=== PATIENT | male | born 1965 | race Caucasian/White ===

== ENCOUNTER → 2021-03-08 | Outpatient (CLI) | payer OTHER, SELFPAY | END | disposition home or self-care (01) | LOC: LABSPEC 08:20 | PROVIDERS: Referring Provider Physician Assistant Surgical; Visit Provider Physician Assistant Surgical | DX: Z20.822 Contact with and (suspected) exposure to COVID-19 (principal) | CPT/HCPCS: 87635; U0005; U0003 ==

== ENCOUNTER 2021-06-15 12:49 | Emergency (ER) | payer OTHER, SELFPAY ==
[2021-06-15 12:50] VITALS: BP 137/72; PULSE 86; RESP 18; TEMP 36.7; O2SAT 97; BMI 32.3
[2021-06-15 12:52] VITALS: BP 137/72; PULSE 86; RESP 18; TEMP 36.7; O2SAT 97
[2021-06-15 13:52] VITALS: BP 134/74; PULSE 82; RESP 18; TEMP 36.7; O2SAT 97
--- NOTE | 2021-06-15 15:09 | EX.ED.DYSGE1 ---
HPI History of Present Illness Chief Complaint: General Illness Informant: patient Onset/Context/Timing Onset: Days (5) Context: Gradual Onset Timing: Continuous Quality: Sharp Location: Generalized Worsened by: Nothing Relieved by: Tylenol and Motrin Narrative Narrative: Patient presents with fever that has been constant for the past 5 days. Patient states it has been up to 103.5 at home. Patient did a home COVID-19 test which was negative. Patient went to an urgent care yesterday where they did influenza A and influenza B swabs along with a a Covid PCR test which was negative. Patient states he has been taking Tylenol and ibuprofen for his fever. Patient states this seems to help. Patient also admits to pain in both ears. Patient admits to generalized body aches as well. Patient states that his aches seem to be migratory. Patient also notes a rash over his chest and abdomen as well as his upper extremities. Patient denies any itching. Patient states it is erythema of his skin. 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 [facility] Medical History ASD (atrial septal defect) Home Medications NK 03/06/21 [History Last Taken Unknown] Allergy/AdvReac Type Severity Reaction Status Date / Time grass pollen Allergy Intermediate u Verified 06/15/21 12:52 tree and shrub pollen Allergy Intermediate u Verified 06/15/21 12:52 Surgical History History of appendectomy Social History Smoking Status: Never smoker alcohol intake: current alcohol intake frequency: a few times a week Alcohol type: wine ROS ROS ED Constitutional Constitutional ED: Reports chills and fever(s) Eyes Eyes: Denies blurry vision or change in vision ENT ENT ED: Reports ear pain bilateral; Denies rhinorrhea or sore throat Cardiovascular Cardiovascular: Denies chest pain or palpitations Respiratory/Chest Respiratory/Chest: Denies cough or dyspnea Gastrointestinal Gastrointestinal: Denies nausea or vomiting Genitourinary Genitourinary ED: Denies dysuria or hematuria Musculoskeletal Musculoskeletal: Reports back pain and myalgias Integumentary Reports rash; Denies abscess Neurologic Neurologic: Reports headache(s) and paresthesias; Denies weakness Allergic/Immunologic Allergic/Immunologic ED: Denies mouth swelling or urticaria EXAM Physical Exam Const Vital Signs: 06/15/21 12:50 06/15/21 12:52 06/15/21 13:52 Temperature 98.0 F 98.0 F 98.0 F Temperature Source Temporal Temporal Temporal Pulse Rate 86 86 82 Respiratory Rate 18 18 18 Respiratory Effort Normal Blood Pressure 137/72 H 137/72 H 134/74 H Blood Pressure Mean 93 93 94 Pulse Ox 97 97 97 Oxygen Delivery Method Room Air Room Air Room Air Positive well nourished and well developed General Appearance ED: well developed HEENT Reports TM's clear and moist mucous membranes Tympanic Membrane ED: Yes TM's clear Neck supple and no JVD Resp normal respiratory effort and clear to auscultation bilaterally Cardio regular rate, regular rhythm and no murmurs GI normal to inspection, nondistended, normoactive bowel sounds and non-tender Palpation: soft Extremity normal to inspection General Extremety ED: Negative for edema or tenderness General Extremity: Negative for edema Neuro oriented x3, CN's II-XII intact bilaterally and no sensory deficits noted Sensorium / Orientation: alert Motor Exam: strength 5/5 throughout Psych mental status grossly normal Skin Skin Narrative: There is an erythematous macular rash that is worse across the chest but also involves the abdomen and bilateral upper extremities. There are no vesicles or pustules. There are no petechia noted. There is no involvement of mucous membranes. MDM MDM MDM Narrative Medical decision making narrative: Patient was given IV fluids and morphine here. CBC shows a mild anemia with hemoglobin of 12.6 hematocrit 36.7. Platelets were normal. Comprehensive metabolic profile was essentially within normal limits. Anion gap was normal. Total bilirubin was slightly elevated at 1.8, AST was slightly elevated at 184, and ALT was slightly elevated at 311. Lactate was normal. Urinalysis does not show any evidence of urinary tract infection. Portable chest x-ray was obtained. There is 1 view. On my interpretation, there is bibasilar atelectasis. There is no acute cardiopulmonary process. Radiologist also interpreted the x-ray and agrees. Patient is feeling better on reevaluation. Patient was advised of his findings. Patient was instructed to follow-up with his primary care physician in 5 to 7 days. Patient does not have any right upper quadrant pain. However, given his mildly elevated liver function tests, he may need further evaluation of this as an outpatient. I do not feel he has acute cholecystitis at this time. Patient understands and is agreeable with the plan. All questions were answered. Lab Data Attestation: I reviewed the patient's lab results. Labs: Laboratory Results - last 24 hr 06/15/21 06/15/21 06/15/21 15:55 15:55 15:55 WBC 6.9 RBC 4.18 L Hgb 12.6 L Hct 36.7 L MCV 87.8 MCH 30.1 MCHC 34.3 RDW Std Deviation 42.1 RDW Coeff of Arnold 13.1 Plt Count 151 MPV 10.0 Immature Gran % (Auto) 0.100 Neut % (Auto) 78.7 H Lymph % (Auto) 15.6 L [place] % (Auto) 4.1 Eos % (Auto) 0.9 Baso % (Auto) 0.6 Absolute Neuts (auto) 5.4 Absolute Lymphs (auto) 1.07 Nucleated RBC % 0 Differential Comment SCANNED Atypical Lymphocytes RARE Sodium 136 Potassium 3.6 Chloride 99 Carbon Dioxide 28.0 Anion Gap 9 BUN 20 H Creatinine 1.25 Estim Creat Clear Calc 68.13 Est GFR (MDRD) Af Amer 77 Est GFR (MDRD) Non-Af 63 BUN/Creatinine Ratio 16.0 Glucose 115 H Lactic Acid 1.9 Calcium 8.6 Total Bilirubin 1.80 H AST 184 H ALT 311 H Alkaline Phosphatase 55 Total Protein 7.3 Albumin 3.3 Globulin 4.0 Albumin/Globulin Ratio 0.8 L Urine Color Urine Clarity Urine pH Ur Specific [place] Urine Protein Urine Glucose (UA) Urine Ketones Urine Occult Blood Urine Nitrite Urine Bilirubin Urine Urobilinogen Ur Leukocyte Esterase Urine RBC Urine WBC Ur Squamous Epith Cells Amorphous Sediment Urine Bacteria Urine Mucus 06/15/21 17:11 WBC RBC Hgb Hct MCV MCH MCHC RDW Std Deviation RDW Coeff of Arnold Plt Count MPV Immature Gran % (Auto) Neut % (Auto) Lymph % (Auto) [place] % (Auto) Eos % (Auto) Baso % (Auto) Absolute Neuts (auto) Absolute Lymphs (auto) Nucleated RBC % Differential Comment Atypical Lymphocytes Sodium Potassium Chloride Carbon Dioxide Anion Gap BUN Creatinine Estim Creat Clear Calc Est GFR (MDRD) Af Amer Est GFR (MDRD) Non-Af BUN/Creatinine Ratio Glucose Lactic Acid Calcium Total Bilirubin AST ALT Alkaline Phosphatase Total Protein Albumin Globulin Albumin/Globulin Ratio Urine Color [place] Urine Clarity Clear Urine pH 5.0 Ur Specific [place] 1.020 Urine Protein 100 H Urine Glucose (UA) Normal Urine Ketones 15 H Urine Occult Blood 25 H Urine Nitrite Negative Urine Bilirubin Negative Urine Urobilinogen Normal Ur Leukocyte Esterase 25 H Urine RBC 0 SEEN Urine WBC 0-5 SEEN Ur Squamous Epith Cells 0 SEEN Amorphous Sediment 1+ Urine Bacteria 1+ Urine Mucus 0 SEEN Radiography Chest X-Ray - ED: 1 View, Read by ED Physician, Read by Radiologist and No Acute Disease Diagnostic Testing: Clinical Impression(s) from Imaging Studies Chest X-Ray 06/15/21 15:16 IMPRESSION: Poor inspiration with bibasilar atelectasis. Electronically Signed: Dewayne Waller MD at 16:30 EST Tel , Service support , Discharge Plan Triage Chief Complaint: General Illness ED Provider: Jose Mcqueen Dx/Rx/DC Orders Clinical Impression: Febrile illness Instructions: ED FUO Adult Prescriptions: No Action NK RF: 0 Primary Care Provider: Guillermo Lambert Referrals: Guillermo Lambert MD [Primary Care Provider] - 5-7 Days Disposition Disposition: Home, Self Care
--- NOTE | 2021-06-15 15:16 | RAD_ITS ---
STUDY: X-RAY CHEST REASON FOR EXAM: Male, 55 years old. Fever TECHNIQUE: PA and lateral views of the chest. COMPARISON: None. FINDINGS: Status post median sternotomy, possibly as a child. Poor inspiration with some bibasilar atelectasis. There is no demonstrated pleural abnormality. Normal size heart. Normal mediastinum and monika. Normal visualized pulmonary arteries. Normal visualized aortic arch and descending thoracic aorta. Normal visualized thoracic spine. Normal visualized ribs, clavicles, and shoulders. There is no demonstrated abnormality of the visualized soft tissue structures of the upper abdomen. RAD/Chest PA and Lateral IMPRESSION: Poor inspiration with bibasilar atelectasis. Electronically Signed: Dewayne Waller MD at 16:30 EST Tel , Service support ,
[2021-06-15] MEDS: 0.9% Normal Saline 1,000 ML 1000 ML IV (15:44)
[2021-06-15] MEDS: Morphine 4 MG/ML Syringe IV (15:44)
[2021-06-15 16:10] LABS: Absolute Lymphocyte Count 1.07 X10^3/uL (0.83-4.51); Absolute Neutrophil Count 5.4 X10^3/uL (2.0-7.7); Basophil# 0.04 X10^3/uL; Basophil% 0.6 % (0-1); Eosinophil# 0.06 X10^3/uL; Eosinophils% 0.9 % (0-5); Hematocrit 36.7 % (40-54); Hemoglobin 12.6 g/dL (13.0-16.5); Lymphocyte # 1.07 X10^3/ul (0.83-4.51); Lymphocyte % 15.6 % (19-41); Mean Corp Hgb Conc 34.3 g/dL (32-36); Mean Corpuscular Hgb 30.1 pg (27.0-32.0); Mean Corpuscular Volume 87.8 fL (80-94); Monocyte# 0.28 X10^3/uL; Monocyte% 4.1 % (0-10); NRBC Flagged by Analyzer 0 % (0-5); Neutrophil # 5.42 X10^3/uL (2.7-7.7); Neutrophil % 78.7 % (47-70); POSITIVE MORPHOLOGY YES; Platelet Count 151 K/mm3 (150-450); RBC Distribution Width CV 13.1 % (11.6-14.6); RBC Distribution Width SD 42.1 fl (35.1-43.9); Red Blood Count 4.18 M/mm3 (4.6-6.2); White Blood Count 6.9 K/mm3 (4.4-11.0)
[2021-06-15 16:14] LABS: Differential Indicated SCAN CRITERIA MET
[2021-06-15 16:26] LABS: ALB/GLOB Ratio 0.8 RATIO (0.9-2.4); AST(SGOT) 184 U/L (15-37); Alanine Aminotransfer ALT/SGPT 311 U/L (16-61); Albumin, Serum 3.3 g/dL (3.2-5.0); Alkaline Phosphatase 55 U/L (45-117); Anion Gap 9 (5-15); BUN 20 mg/dL (7-18); Calcium,Total 8.6 mg/dL (8.5-10.1); Chloride 99 mmol/L (98-107); Creatinine, Serum 1.25 mg/dL (0.70-1.30); EST Glomerular Filtration Rate 63 mL/min (>60); Est Glom Filt Rate - Afr Amer 77 mL/min (>60); Estimated Creatinine Clearance 68.13 ml/min; Glucose 115 mg/dL (74-106); Potassium 3.6 mmol/L (3.5-5.1); Protein, Total 7.3 g/dL (6.4-8.2); Sodium Level 136 mmol/L (136-145)
[2021-06-15 16:32] LABS: Lactic Acid 1.9 mmol/L (0.4-1.9)
[2021-06-15 16:38] LABS: Differential Comment SCANNED
[2021-06-15 16:39] LABS: Atypical Lymphocyte RARE %
[2021-06-15 17:14] LABS: Mucous, Urine 0 SEEN /hpf (<or=2+); Red Blood Cells-Urine 0 SEEN /hpf (0-5); Squamous Epithelial Cells - UA 0 SEEN /hpf (0-5)
[2021-06-15 17:16] LABS: Color, Urine Amber (Yellow); Glucose, Dipstick Normal (Normal); Ketone-Dipstick 15 mg/dl (Negative); Leukocyte Esterase-Dipstick 25 /ul (Negative); Nitrite-Dipstick Negative (Negative); Occult Blood-Urine 25 /ul (Negative); Protein-Dipstick 100 mg/dl (Negative); Urine Bilirubin Dipstick Negative (Negative); Urine Clarity Clear (Clear); Urine Urobilinogen Normal (Normal)
[2021-06-15 17:23] LABS: Amorphous Sediment 1+; Bacteria 1+ /hpf (None Seen); White Blood Cells 0-5 SEEN /hpf (0-5)
[2021-06-15 18:12] VITALS: PULSE 74; RESP 14; O2SAT 99
== END 2021-06-15 18:12 | disposition home or self-care (01) ==
PROVIDERS: Emergency Provider Emergency Medicine; PCP Family Medicine
DX: R50.9 Fever, unspecified (principal); R94.5 Abnormal results of liver function studies
CPT/HCPCS: 71046; 80053; 81001; 83605; 85025; 87040; 87426; 96361; 96374; 99285; J7030; A4216

== ENCOUNTER 2021-06-21 14:20 | Inpatient (IN) | payer OTHER, SELFPAY ==
[2021-06-21] VITALS (19 sets, daily range): BP systolic 115–165; BP diastolic 63–83; PULSE 71–155; RESP 14–28; TEMP 36.7–37.7; O2SAT 88–100; BMI 34.4; BMI 33.6
--- NOTE | 2021-06-21 14:30 | RAD_ITS ---
STUDY: X-RAY CHEST REASON FOR EXAM: Male, 55 years old. SOB AND FEVER TECHNIQUE: Single AP portable view of the chest. COMPARISON: Comparison is made with prior study dated 06/15/2021. FINDINGS: There is evidence of CHF with superimposed bibasilar pulmonary infiltrates. Blunting of both costophrenic angles. Sternal cerclage wires and vascular clips are present from a prior sternotomy and coronary artery bypass graft procedure (CABG). Normal mediastinum and monika. Normal visualized pulmonary arteries. There is atherosclerotic tortuosity of the aortic arch and descending thoracic aorta. There are diffuse degenerative changes of the visualized thoracic spine. Normal visualized ribs, clavicles, and shoulders. There is no demonstrated abnormality of the visualized soft tissue structures of the upper abdomen. RAD/Chest 1 View (Portable) IMPRESSION: CHF with superimposed bibasilar pulmonary infiltrates and blunting of both costophrenic angles. Electronically Signed: Brian Angeles MD at 14:46 EST , Service support ,
[2021-06-21 15:03] LABS: Absolute Lymphocyte Count 3.14 X10^3/uL (0.83-4.51); Absolute Neutrophil Count 7.2 X10^3/uL (2.0-7.7); Basophil# 0.06 X10^3/uL; Basophil% 0.5 % (0-1); Differential Indicated SCAN CRITERIA MET; Eosinophils% 0.9 % (0-5); Hematocrit 32.4 % (40-54); Hemoglobin 11.2 g/dL (13.0-16.5); Lymphocyte # 3.14 X10^3/ul (0.83-4.51); Lymphocyte % 28.2 % (19-41); Mean Corp Hgb Conc 34.6 g/dL (32-36); Mean Corpuscular Hgb 29.6 pg (27.0-32.0); Mean Corpuscular Volume 85.7 fL (80-94); Mean Platelet Vol. 10.4 fl (6.2-12.0); Monocyte# 0.38 X10^3/uL; Monocyte% 3.4 % (0-10); NRBC Flagged by Analyzer 0 % (0-5); Neutrophil # 7.21 X10^3/uL (2.7-7.7); Neutrophil % 64.9 % (47-70); POSITIVE MORPHOLOGY YES; Platelet Count 405 K/mm3 (150-450); RBC Distribution Width CV 13.8 % (11.6-14.6); RBC Distribution Width SD 42.8 fl (35.1-43.9); Red Blood Count 3.78 M/mm3 (4.6-6.2); White Blood Count 11.1 K/mm3 (4.4-11.0)
[2021-06-21 15:18] LABS: Anion Gap 11 (5-15); BUN 26 mg/dL (7-18); BUN/Creat Ratio 17.7 RATIO (10-20); Calcium,Total 8.4 mg/dL (8.5-10.1); Chloride 97 mmol/L (98-107); Creatinine, Serum 1.47 mg/dL (0.70-1.30); EST Glomerular Filtration Rate 53 mL/min (>60); Est Glom Filt Rate - Afr Amer 64 mL/min (>60); Estimated Creatinine Clearance 57.94 ml/min; Glucose 169 mg/dL (74-106); Potassium 3.4 mmol/L (3.5-5.1); Sodium Level 132 mmol/L (136-145)
--- NOTE | 2021-06-21 17:47 | EKG12_ITS ---
Test Reason : Blood Pressure : / mmHG Vent. Rate : 130 BPM Atrial Rate : 197 BPM P-R Int : 000 ms QRS Dur : 120 ms QT Int : 294 ms P-R-T Axes : 000 -69 105 degrees QTc Int : 432 ms Atrial flutter with variable A-V block Left axis deviation Right bundle branch block Inferior infarct , age undetermined , CANNOT BE EXCLUDED NONSPECIFIC T WAVE ABNORMALITY, Abnormal ECG Confirmed by ANNEL BORDEN, KACI ([id number]), graphic editor TY REYES ([id number]) on 06/22/2021 10:54:01 AM Referred By: EDUARDO Confirmed By:KACI UP MD
--- NOTE | 2021-06-21 17:47 | CT_ITS ---
HISTORY: dyspnea EXAMINATION: CTA Chest WO/W Contrast Injection TECHNIQUE: Helically acquired images were obtained of the chest following IV contrast as per pulmonary angiogram protocol with 3D reconstructions. A radiation dose optimization technique was used for this scan. IV Contrast dosage and agent: 100mL [id number]-370 COMPARISON: None FINDINGS: LUNGS, PLEURA AND LARGE AIRWAYS: Extensive septal thickening with scattered small groundglass opacities and bilateral pleural effusions. Right basilar consolidation. THYROID: No thyroid lesions. PULMONARY ARTERIES: Normal in caliber. No pulmonary embolism. AORTA AND GREAT VESSELS: No aneurysm or dissection. HEART AND PERICARDIUM: Cardiomegaly. No pericardial effusion. MEDIASTINUM AND FACUNDO: Mediastinal adenopathy. Esophagus is unremarkable. No hiatal hernia. UPPER ABDOMEN: Reflux of contrast into the hepatic veins. BONES: No acute or aggressive abnormality. CT/CTA Chest W/WO Contrast IMPRESSION: Negative CTA Chest. Cardiomegaly with pulmonary findings of pulmonary edema versus infection. Evidence of right heart strain. Mediastinal adenopathy. Recommend short-term follow-up for resolution. Individualized dose optimization techniques were used for this CT. at 1928 Reported and signed by: Anshul Melgar MD Electronically Signed: Anshul Melgar MD at 19:27 EST Tel , Service support ,
--- NOTE | 2021-06-21 17:49 | EDS_ITS ---
HPI History of Present Illness Chief Complaint: Shortness of Breath Informant: patient Narrative Narrative: 55-year-old male presents to the emergency room stating that for 12 days he has had fever cough. Now he is developed worsening shortness of breath episodes of tachycardia leg swelling and continued fevers. He reports that he is not on any prescription medications. He has a history of an atrial septal defect repaired as a child. He denies any chest pain. He notes orthopnea and inability to sleep. He states he came to the emergency department on the and had an essentially negative work-up felt that he had an acute febrile illness but no obvious source was found. [facility] Medical History ASD (atrial septal defect) Home Medications NK 03/06/21 [History Last Taken Unknown] Allergy/AdvReac Type Severity Reaction Status Date / Time grass pollen Allergy Intermediate u Verified 06/15/21 12:52 tree and shrub pollen Allergy Intermediate u Verified 06/15/21 12:52 Surgical History History of appendectomy Social History Smoking Status: Never smoker alcohol intake: current alcohol intake frequency: a few times a week Alcohol type: wine ROS ROS ED Constitutional Constitutional ED: Reports chills and fever(s); Denies weight loss Eyes Eyes: Denies change in vision or diplopia ENT ENT ED: Denies ear pain, rhinorrhea or sore throat Cardiovascular Cardiovascular: Reports palpitations and racing heartbeat; Denies chest pain or orthopnea Respiratory/Chest Respiratory/Chest: Reports cough and dyspnea; Denies orthopnea Gastrointestinal Gastrointestinal: Denies abdominal pain, diarrhea, nausea or vomiting Genitourinary Genitourinary ED: Denies dysuria, hematuria or urinary frequency Musculoskeletal Musculoskeletal: Reports other Details: Leg swelling ; Denies arthralgias or myalgias Integumentary Denies abscess or rash Neurologic Neurologic: Denies headache(s) or weakness Psychiatric Psychiatric: Denies anxiety, depression, suicidal ideation or suicidal thoughts Endocrine Endocrinology: Denies polydipsia, polyphagia or polyuria Allergic/Immunologic Allergic/Immunologic ED: Denies mouth swelling, tongue swelling or urticaria EXAM Physical Exam Const Vital Signs: 06/21/21 14:21 06/21/21 17:23 06/21/21 17:25 Temperature 99.9 F H Temperature Source Oral Pulse Rate 89 120 H Respiratory Rate 22 H 21 H Respiratory Effort Non-Labored Short of Breath Blood Pressure 128/77 H 147/82 H Blood Pressure Mean 94 103 Pulse Ox 95 96 94 Oxygen Delivery Method Room Air Room Air Room Air Oxygen Flow Rate (L/min) 06/21/21 17:56 06/21/21 17:58 06/21/21 18:02 Temperature Temperature Source Pulse Rate 116 H 86 87 Respiratory Rate 25 H 18 Respiratory Effort Blood Pressure 160/81 H 137/78 H Blood Pressure Mean 107 97 Pulse Ox 94 93 Oxygen Delivery Method Room Air Room Air Oxygen Flow Rate (L/min) 06/21/21 18:25 06/21/21 18:27 06/21/21 18:30 Temperature Temperature Source Pulse Rate 154 H 128 H Respiratory Rate Respiratory Effort Blood Pressure Blood Pressure Mean Pulse Ox 88 91 Oxygen Delivery Method Room Air Nasal Cannula Oxygen Flow Rate (L/min) 2 06/21/21 18:40 06/21/21 18:57 06/21/21 19:07 Temperature Temperature Source Pulse Rate 141 H 137 H 155 H Respiratory Rate 20 H 14 Respiratory Effort Blood Pressure 152/83 H Blood Pressure Mean 106 Pulse Ox 94 97 Oxygen Delivery Method Nasal Cannula Nasal Cannula Oxygen Flow Rate (L/min) 3 4 Positive well nourished and well developed General Appearance ED: well developed HEENT Reports normocephalic, head/scalp atraumatic, TM's clear and moist mucous membranes Negative for trauma Tympanic Membrane ED: Yes TM's clear Eyes PERRL and EOMs intact bilaterally Neck no lymphadenopathy, supple and no JVD Resp normal respiratory effort and clear to auscultation bilaterally Cardio no murmurs Rate: tachycardic Rhythm: abnormal rhythm irregularly irregular GI normal to inspection, nondistended, normoactive bowel sounds and non-tender Palpation: soft Back/Spine no CVA tenderness and normal ROM Extremity Extremity Narrative: 2+ bilateral lower extremity edema General Extremety ED: Yes edema and tenderness General Extremity: edema Neuro oriented x3 and CN's II-XII intact bilaterally Sensorium / Orientation: alert Motor Exam: strength 5/5 throughout Psych mental status grossly normal Mood & Affect: Negative for depressed or tearful Skin no rashes or lesions noted and no wounds MDM MDM MDM Narrative Medical decision making narrative: Patient noted on the monitor to be in new onset atrial fibrillation. EKG confirms this. My interpretation of the chest x-ray is CHF with small pleural effusions. Basic blood work showed a white count of 11.1. TSH and magnesium normal. BMP showed BUN 26 and creatinine 1.47. CTA of the chest does not show any pulmonary embolism. Beta natruretic peptide is elevated his troponin is slightly elevated. Patient received Lasix and was started on a Cardizem drip. Plan is admission to hospital. Lab Data Attestation: I reviewed the patient's lab results. Labs: Laboratory Results - last 24 hr 06/21/21 06/21/21 06/21/21 14:50 14:50 14:50 WBC 11.1 H RBC 3.78 L Hgb 11.2 L Hct 32.4 L MCV 85.7 MCH 29.6 MCHC 34.6 RDW Std Deviation 42.8 RDW Coeff of Arnold 13.8 Plt Count 405 MPV 10.4 Immature Gran % (Auto) 2.100 H Neut % (Auto) 64.9 Lymph % (Auto) 28.2 [place] % (Auto) 3.4 Eos % (Auto) 0.9 Baso % (Auto) 0.5 Absolute Neuts (auto) 7.2 Absolute Lymphs (auto) 3.14 Nucleated RBC % 0 Differential Comment Sodium 132 L Potassium 3.4 L Chloride 97 L Carbon Dioxide 24.0 Anion Gap 11 BUN 26 H Creatinine 1.47 H Estim Creat Clear Calc 57.94 Est GFR (MDRD) Af Amer 64 Est GFR (MDRD) Non-Af 53 L BUN/Creatinine Ratio 17.7 Glucose 169 H Calcium 8.4 L Magnesium Total Bilirubin 1.10 H Direct Bilirubin 0.32 H AST 106 H ALT 262 H Alkaline Phosphatase 83 Troponin I High Sens B-Natriuretic Peptide Total Protein 6.5 Albumin 2.5 L Globulin 4.0 TSH Urine Color Urine Clarity Urine pH Ur Specific [place] Urine Protein Urine Glucose (UA) Urine Ketones Urine Occult Blood Urine Nitrite Urine Bilirubin Urine Urobilinogen Ur Leukocyte Esterase Urine RBC Urine WBC Ur Squamous Epith Cells Urine Bacteria Urine Mucus 06/21/21 06/21/21 06/21/21 14:50 14:50 18:35 WBC RBC Hgb Hct MCV MCH MCHC RDW Std Deviation RDW Coeff of Arnold Plt Count MPV Immature Gran % (Auto) Neut % (Auto) Lymph % (Auto) [place] % (Auto) Eos % (Auto) Baso % (Auto) Absolute Neuts (auto) Absolute Lymphs (auto) Nucleated RBC % Differential Comment Sodium Potassium Chloride Carbon Dioxide Anion Gap BUN Creatinine Estim Creat Clear Calc Est GFR (MDRD) Af Amer Est GFR (MDRD) Non-Af BUN/Creatinine Ratio Glucose Calcium Magnesium 2.5 Total Bilirubin Direct Bilirubin AST ALT Alkaline Phosphatase Troponin I High Sens 144 H* B-Natriuretic Peptide 1273.5 H Total Protein Albumin Globulin TSH 2.03 Urine Color Straw Urine Clarity Clear Urine pH 6.5 Ur Specific [place] 1.010 Urine Protein Negative Urine Glucose (UA) Normal Urine Ketones Negative Urine Occult Blood Negative Urine Nitrite Negative Urine Bilirubin Negative Urine Urobilinogen Normal Ur Leukocyte Esterase Negative Urine RBC 0 SEEN Urine WBC 0 SEEN Ur Squamous Epith Cells 0 SEEN Urine Bacteria 0 SEEN Urine Mucus 0 SEEN Radiography Diagnostic Testing: Clinical Impression(s) from Imaging Studies Chest X-Ray 06/21/21 14:30 IMPRESSION: CHF with superimposed bibasilar pulmonary infiltrates and blunting of both costophrenic angles. Electronically Signed: Brian Angeles MD at 14:46 EST , Service support , Chest CTA 06/21/21 17:47 IMPRESSION: Negative CTA Chest. Cardiomegaly with pulmonary findings of pulmonary edema versus infection. Evidence of right heart strain. Mediastinal adenopathy. Recommend short-term follow-up for resolution. Individualized dose optimization techniques were used for this CT. at 1928 Reported and signed by: Anshul Melgar MD Electronically Signed: Anshul Melgar MD at 19:27 EST Tel , Service support , EKG Initial EKG: Attestation: I personally reviewed and interpreted this EKG as follows: Interpretation: No Acute Injury Pattern Comments: Atrial flutter with variable block ventricular rate of 130 bpm Discharge Plan Dx/Rx/DC Orders Clinical Impression: New onset a-fib, CHF (congestive heart failure), Pleural effusion, Acute dyspnea Disposition Disposition: Acute Care Hospital [facility]
[2021-06-21] MEDS: dilTIAZem 25 MG/5 ML Vial 10 MG IV BOLUS (17:54)
[2021-06-21] MEDS: Furosemide 100 MG/10 ML Vial 60 MG IV (17:54)
[2021-06-21 18:57] LABS: BNP,B-Type NATRIURETIC PEPTIDE 1273.5 pg/mL (0-100)
[2021-06-21 18:58] LABS: AST(SGOT) 106 U/L (15-37); Alanine Aminotransfer ALT/SGPT 262 U/L (16-61); Albumin, Serum 2.5 g/dL (3.2-5.0); Alkaline Phosphatase 83 U/L (45-117); Bilirubin, Direct 0.32 mg/dL (0.00-0.30); Protein, Total 6.5 g/dL (6.4-8.2)
[2021-06-21 19:05] LABS: Bacteria 0 SEEN /hpf (None Seen); Mucous, Urine 0 SEEN /hpf (<or=2+); Red Blood Cells-Urine 0 SEEN /hpf (0-5); Squamous Epithelial Cells - UA 0 SEEN /hpf (0-5); White Blood Cells 0 SEEN /hpf (0-5)
[2021-06-21 19:07] LABS: Color, Urine Straw (Yellow); Glucose, Dipstick Normal (Normal); Ketone-Dipstick Negative (Negative); Leukocyte Esterase-Dipstick Negative /ul (Negative); Nitrite-Dipstick Negative (Negative); Occult Blood-Urine Negative /ul (Negative); Protein-Dipstick Negative (Negative); Urine Bilirubin Dipstick Negative (Negative); Urine Clarity Clear (Clear); Urine Urobilinogen Normal (Normal); Urine pH 6.5 (5.0 - 8.0)
[2021-06-21 19:14] LABS: Magnesium 2.5 mg/dL (1.6-2.6); Thyroid Stim Hormone (TSH) 2.03 uIU/mL (0.358-3.74); Troponin-I HS 144 pg/mL (3.0-78.0)
--- NOTE | 2021-06-21 20:00 | PCM.HP.STD ---
HPI - General General Date of Admission: 06/21/21 HPI Narrative CHANI TREVIZO, is a 55 M with a significant history of congenital ASD status post repair and obesity who presents to emergency department with a 12-day history of a fever. Reportedly his fever has been waxing and waning. He was at a emergency department on June 15, 2021 where a Covid screen was done. He reported that during the course of his illness he has had 3 Covid test and all were negative. He reports home temperature as high as 103.7F. He has been taken Advil and Tylenol to control his fever. Associated with his symptoms is insomnia; dyspnea on exertion; orthopnea; paroxysmal nocturnal dyspnea and swelling of his lower extremities. He he also complains of muscle aches. He was having diarrhea but for the past 2 days (before presentation) his bowels has not moved. Patient was at the urgent care about a week ago and influenza A and B tested returned negative. His reported patient returned from [place] in February 2021. COVID-19 vaccination status: Patient has had 2 doses of Moderna. His booster dose was actually scheduled for this week. [facility] Medical History ASD (atrial septal defect) Home Medications NK 03/06/21 [History Last Taken Unknown] Allergy/AdvReac Type Severity Reaction Status Date / Time grass pollen Allergy Intermediate u Verified 06/15/21 12:52 tree and shrub pollen Allergy Intermediate u Verified 06/15/21 12:52 Family History Other Asthma Heart disease Surgical History History of appendectomy Social History Smoking Status: Never smoker alcohol intake: current alcohol intake frequency: a few times a week Alcohol type: wine ROS ROS Narrative Constitutional: Patient reports fever, chills, fatigue, and about 15 pounds weight gain in the past 2 weeks. Eyes: Denies blurry vision, change in eye color, change in vision, discharge from eye(s), double vision, erythema, eye pain, loss of vision or other HEENT: Denies abnormal hearing, dysphagia, ear pain, epistaxis, headache(s), hearing loss, nasal congestion, nasal discharge, post nasal drip, sinus pressure, sore throat or other Cardiovascular: Reports palpitations. Reports dyspnea on exertion, orthopnea and paroxysmal nocturnal dyspnea. Denies chest pain or palpitations. Respiratory/Chest: Reports intermittent little dry cough. Reports shortness of breath with exertion. Denies wheezes Gastrointestinal: Reports diarrhea that resolved 2 days ago. With last bowel movement 2 days ago. Denies abdominal pain, coffee ground emesis, dyspepsia, hematemesis, hematochezia, , melena, or other Genitourinary: Denies burning urination, difficulty urinating, dysuria, hematuria, nocturia, urinary frequency, urinary hesitancy, urinary incontinence, urinary urgency or other Musculoskeletal: Reports myalgia which is improving. Denies arthralgias, back pain, joint pain, joint stiffness, joint swelling, neck pain or other Neurologic: Denies abnormal gait, abnormal speech, confusion, disequilibrium, dizziness, focal weakness, headache(s), numbness, paresthesias, seizure-like activity, seizures, syncope, tingling, tremor(s) or other Psychiatric: Denies anxiety, depression, homicidal ideation, suicidal ideation or other Endocrinology: Denies change in body appearance, cold intolerance, excessive sweating, heat intolerance, polydipsia, polyuria or other Hematologic/Lymphatic: Denies anemia, easy bleeding, easy bruising, lymphadenopathy or other Integumentary: Denies rashes Allergic/Immunologic: Denies rhinitis, hives, eczema, asthma or other Vital Signs Vital Signs Vital Signs: 06/21/21 14:21 06/21/21 17:23 06/21/21 17:25 Temperature 99.9 F H Temperature Source Oral Pulse Rate 89 120 H Respiratory Rate 22 H 21 H Respiratory Effort Non-Labored Short of Breath Blood Pressure 128/77 H 147/82 H Blood Pressure Mean 94 103 Pulse Ox 95 96 94 Oxygen Delivery Method Room Air Room Air Room Air Oxygen Flow Rate (L/min) 06/21/21 17:56 06/21/21 17:58 06/21/21 18:02 Temperature Temperature Source Pulse Rate 116 H 86 87 Respiratory Rate 25 H 18 Respiratory Effort Blood Pressure 160/81 H 137/78 H Blood Pressure Mean 107 97 Pulse Ox 94 93 Oxygen Delivery Method Room Air Room Air Oxygen Flow Rate (L/min) 06/21/21 18:25 06/21/21 18:27 06/21/21 18:30 Temperature Temperature Source Pulse Rate 154 H 128 H Respiratory Rate Respiratory Effort Blood Pressure Blood Pressure Mean Pulse Ox 88 91 Oxygen Delivery Method Room Air Nasal Cannula Oxygen Flow Rate (L/min) 2 06/21/21 18:40 06/21/21 18:57 06/21/21 19:07 Temperature Temperature Source Pulse Rate 141 H 137 H 155 H Respiratory Rate 20 H 14 Respiratory Effort Blood Pressure 152/83 H Blood Pressure Mean 106 Pulse Ox 94 97 Oxygen Delivery Method Nasal Cannula Nasal Cannula Oxygen Flow Rate (L/min) 3 4 06/21/21 19:54 Temperature 98.1 F Temperature Source Oral Pulse Rate 91 Respiratory Rate 16 Respiratory Effort Blood Pressure 165/81 H Blood Pressure Mean 109 Pulse Ox 98 Oxygen Delivery Method Nasal Cannula Oxygen Flow Rate (L/min) Weight Weight: 109 kg Body Mass Index (BMI) 34.4 Physical Exam Narrative Physical exam: General: Well-nourished, well-developed. Head: Normocephalic, atraumatic, no tenderness Eyes: PERRLA, EOMI ENT, no trauma, moist mucous membranes, no rhinorrhea Neck: Nontender, full range of motion, no spinal tenderness, deformities, step-off CVS: Irregularly irregular heart rate and rhythm. Tachycardia.. S1-S2 present. No murmur, gallop or rub. Respiratory : Rales. Chest wall nontender, no wheezing Abdomen: Soft, nontender, nondistended, normal bowel sounds, no masses : Deferred Back: Nontender, no CVA tenderness, no midline spinal tenderness, deformities, step-offs Extremities: Bilateral lower extremity 2+ pitting edema. Nontender full range of motion, no trauma Skin: Normal color, no trauma, abrasions Neuro: Alert, oriented, cranial nerves II through XII grossly intact. Psychiatry: Normal mood. Normal affect. Not depressed. Not anxious. Results Lab / Micro Data Result Diagrams: 06/21/21 14:50 06/21/21 14:50 Labs: Laboratory Results - last 24 hr 06/21/21 14:50: WBC 11.1 H, RBC 3.78 L, Hgb 11.2 L, Hct 32.4 L, MCV 85.7, MCH 29.6, MCHC 34.6, RDW Std Deviation 42.8, RDW Coeff of Arnold 13.8, Plt Count 405, MPV 10.4, Immature Gran % (Auto) 2.100 H, Neut % (Auto) 64.9, Lymph % (Auto) 28.2, [place] % (Auto) 3.4, Eos % (Auto) 0.9, Baso % (Auto) 0.5, Absolute Neuts (auto) 7.2, Absolute Lymphs (auto) 3.14, Nucleated RBC % 0, Differential Comment 06/21/21 14:50: Sodium 132 L, Potassium 3.4 L, Chloride 97 L, Carbon Dioxide 24.0, Anion Gap 11, BUN 26 H, Creatinine 1.47 H, Estim Creat Clear Calc 57.94, Est GFR (MDRD) Af Amer 64, Est GFR (MDRD) Non-Af 53 L, BUN/Creatinine Ratio 17.7, Glucose 169 H, Calcium 8.4 L 06/21/21 14:50: Total Bilirubin 1.10 H, Direct Bilirubin 0.32 H, AST 106 H, ALT 262 H, Alkaline Phosphatase 83, Total Protein 6.5, Albumin 2.5 L, Globulin 4.0 06/21/21 14:50: Magnesium 2.5, Troponin I High Sens 144 H*, TSH 2.03 06/21/21 14:50: B-Natriuretic Peptide 1273.5 H 06/21/21 18:35: Urine Color Straw, Urine Clarity Clear, Urine pH 6.5, Ur Specific [place] 1.010, Urine Protein Negative, Urine Glucose (UA) Normal, Urine Ketones Negative, Urine Occult Blood Negative, Urine Nitrite Negative, Urine Bilirubin Negative, Urine Urobilinogen Normal, Ur Leukocyte Esterase Negative, Urine RBC 0 SEEN, Urine WBC 0 SEEN, Ur Squamous Epith Cells 0 SEEN, Urine Bacteria 0 SEEN, Urine Mucus 0 SEEN Radiology Impression Chest X-Ray 06/21/21 14:30 IMPRESSION: CHF with superimposed bibasilar pulmonary infiltrates and blunting of both costophrenic angles. Electronically Signed: Brian Angeles MD at 14:46 EST , Service support , Chest CTA 06/21/21 17:47 IMPRESSION: Negative CTA Chest. Cardiomegaly with pulmonary findings of pulmonary edema versus infection. Evidence of right heart strain. Mediastinal adenopathy. Recommend short-term follow-up for resolution. Individualized dose optimization techniques were used for this CT. at 1928 Reported and signed by: Anshul Melgar MD Electronically Signed: Anshul Melgar MD at 19:27 EST Tel , Service support , Assessment & Plan Assessment/Plan (1) New onset a-fib: (2) CHF (congestive heart failure): (3) Liver enzyme elevation: (4) Elevated troponin: PLAN: Newly diagnosed atrial fibrillation. Place on PCU on telemetry Telemetric strip independently interpreted showed A. fib with RVR. Obtain echo [id number] Score = 2. Reports that home blood pressure is typically more than 120, newly diagnosed heart failure. Lovenox 1 mg per kilogram subcutaneous every 12 hours Started on Cardizem drip at emergency department and continued. Potassium was 3.4. Will replace potassium and start on daily potassium limitation. Will check magnesium. Trend BMP. Acute heart failure Place on monitored bed on PCU Weight on admission to the floor; and then daily Strict I&O's CXR independently interpreted confirms bilateral infiltrates with blunting of bilateral costophrenic angles. I agree radiologist reputation. Chest CTA radiologist with cardiomegaly; pulmonary edema versus infection; evidence of right heart strain and mediastinal adenopathy. BNP of 1273.5 Received Lasix 60 mg IV push at the emergency department. Lasix 40 mg IV push twice daily ordered. Supplemental potassium ordered. Echo ordered to evaluate LVEF and wall motion ordered. Trend blood pressure Elevate bilateral lower legs and anjum wrap to bilateral lower extremities Fluid restriction of 1500 mls daily Cardiac diet Elevated troponin Initial has any troponin is 144. Likely type II PR from demand. Elevated liver enzyme AST on presentation was 106. ALT on presentation was 262. This is a decrease from AST and ALT on 06/15/2021. Likely from heart failure. Does not complain of abdominal pain to consider ultrasound of liver at this time. Fever of unknown origin Patient with mild leukocytosis of 11.1 and 2.1% bandemia. Blood cultures obtained on 06/15/2021 showed no growth. If patient is to spike fever consider repeating blood culture. Will get RSV; HIV test; syphilis test and malaria test (reports going to [place]). Had a CTA chest on presentation no further CAT scan at this time. DVT prophylaxis: Therapeutic Lovenox for A. fib ordered. Charges/Coding Visit Charges Inpatient E&M: 90154 Init Hosp L3
--- NOTE | 2021-06-21 20:30 | CASEMGMT ---
RN MANSOOR Assessment: RN CM to room to meet with patient for initial transition planning/care coordination assessment. RN CM introduced self and role at [facility]. Pt voices understanding and consents to assessment at this time. Pt resting in bed in no distress, nadya Meng at bedside. Pt is A/O at this time and answers all questions appropriately. Care providers, pharmacy, and demographics verified/updated at this time. PCP: Guillermo Lambert Specialists: Denies Preferred Pharmacy: [facility] Insurance: [employer] Prescription Benefit: yes Living Will/HPOA: Patient reports he has a living will. HPOA is Yusra. Patient and made aware these forms are not on file at [facility] and may be brought in to be scanned into record. LNOK: Yusra Tranashley Living Arrangements: Patient lives with and two children in [address] [facility] with 4 steps to enter the home without a handrail. Patient states independent with ADLs prior to hospitalization. Transportation: Self DME/HHC/SNF: reports shower chair and walker available in home but patient does not need or use equipment. Denies previous HHC or SNF stays. Patient does not currently take any anticoagulant medications. Pt has no concerns with going home at time of discharge. CM to follow for any discharge planning/needs. Pt voices no concerns/needs at this time. Advised pt to ask for CM if any questions/concerns/needs arise. Voices understanding. PLAN: Home
--- NOTE | 2021-06-21 20:47 | PCS.PANDOC ---
PANDEMIC DOCUMENTATION INITIATED: Date: 02/01/2021 Time: 190
--- NOTE | 2021-06-21 21:05 | ECHOD_ITS ---
Reason For Study: AFIB Procedure This was a 2D Doppler, Color Flow transthoracic echocardiogram. The study was technically difficult. Exam performed portable in patient room. Left Ventricle Normal LV size. D shaped septum in systole and diastole. Severe concentric left ventricular hypertrophy. Left ventricular systolic function is normal. The estimated ejection fraction is 65 %. The global longitudinal strain = -12% (abnormal). There is evidence of diastolic dysfunction. No regional wall motion abnormalities noted. Right Ventricle Mildly dilated right ventricle. Based upon the 2D echocardiographic images obtained the RV free wall appears thickened. Mild global right ventricular systolic dysfunction. Atria The left atrium is moderately enlarged. The right atrium is mildly enlarged. No doppler evidence for ASD. Mitral Valve There is no mitral annular calcification. Anterior leaflet diffuse mitral valve thickening. Severe focal mitral valve calcification of the anterior leaflet. The mitral valve chordae are thickened and/or calcified. Moderate (2+) eccentric mitral valve insufficiency. Tricuspid Valve Normal tricuspid valve. Mild tricuspid valve insufficiency. Right ventricular systolic pressure estimated to be 57 mmHg. Aortic Valve Trisinus/trileaflet aortic valve. Mild focal aortic valve thickening. Pulmonic Valve The pulmonic valve is not well visualized. Trivial pulmonic valve insufficiency. Great Vessels The aortic root is not well visualized. Pericardium/Pleural No pericardial effusion. MMode/2D Measurements & Calculations LVIDd: 3.2 cm IVSd: 1.9 cm LAV(MOD-bp): 97.9 ml LVIDs: 2.2 cm LVPWd: 1.9 cm LAV(MOD-bp) Indexed: 43.9 ml/m2 FS: 30.3 % LAV(MOD-sp2): 94.5 ml LAV(MOD-sp4): 92.5 ml LA dimension(2D): 5.1 cm LA A4 area: 27.4 cm2 RA A4 area: 22.4 cm2 Doppler Measurements & Calculations MV E max olaf: 249.6 cm/sec Lat Peak E' Olaf: 12.3 cm/sec Med Peak E' Olaf: 7.0 cm/sec E/E' lat: 20.2 E/E' med: 35.5 MV V2 max: 247.2 cm/sec Ao V2 max: 183.2 cm/sec TR max olaf: 357.3 cm/sec MV max P.4 mmHg Ao max P.5 mmHg TR max P.1 mmHg MV V2 mean: 146.0 cm/sec MV mean P.3 mmHg MV V2 VTI: 75.3 cm MV P1/2t-pr_phl: 103.6 msec ECHO/Echo Complete Interpretation Summary The study was technically difficult. Left ventricular systolic function is normal. The estimated ejection fraction is 65 %. The global longitudinal strain = -12% (abnormal). D shaped septum in systole and diastole. Severe concentric left ventricular hypertrophy. Mildly dilated right ventricle. Mild global right ventricular systolic dysfunction. Based upon the 2D echocardiographic images obtained the RV free wall appears th ickened. The left atrium is moderately enlarged. The right atrium is mildly enlarged. Anterior leaflet diffuse mitral valve thickening. Severe focal mitral valve calcification of the anterior leaflet. The mitral valve chordae are thickened and/or calcified. The mitral papillary muscle appears thickened. Moderate (2+) eccentric mitral valve insufficiency. Mild tricuspid valve insufficiency. Mild focal aortic valve thickening. Trivial pulmonic valve insufficiency. Right ventricular systolic pressure estimated to be 57 mmHg. There is evidence of diastolic dysfunction. Comment: The global longitudinal strain map suggests a bull's-eye type patter n potentially compatible with amyloidosis. Ordering Physician: Fabio Gallagher Referring Physician: ASHWIN PARADA Performed By: Dahiana Rodriguez RDCS, RVT
[2021-06-21 21:31] LABS: QC Malaria Lot#/Exp Date RECORD LOT#/EXP DATE
[2021-06-21] MEDS: Potassium Chloride Oral Tablet 20 MEQ 60 MEQ PO (21:53)
[2021-06-21] MEDS: 0.9% Saline Lock 10 ML Syringe IV (21:54)
[2021-06-21] MEDS: Enoxaparin 120 MG/0.8 ML Syringe 110 MG SC (23:21)
[2021-06-22] VITALS (30 sets, daily range): BP systolic 100–146; BP diastolic 61–92; PULSE 75–100; RESP 16–26; TEMP 36.7–36.8; O2SAT 91–100
[2021-06-22 00:40] LABS: Troponin-I HS 139 pg/mL (3.0-78.0)
[2021-06-22 01:36] LABS: Troponin-I HS 141 pg/mL (3.0-78.0)
[2021-06-22 04:51] LABS: Absolute Lymphocyte Count 3.16 X10^3/uL (0.83-4.51); Absolute Neutrophil Count 6.4 X10^3/uL (2.0-7.7); Basophil# 0.07 X10^3/uL; Basophil% 0.7 % (0-1); Eosinophil# 0.12 X10^3/uL; Eosinophils% 1.1 % (0-5); Hematocrit 32.1 % (40-54); Hemoglobin 10.6 g/dL (13.0-16.5); Lymphocyte # 3.16 X10^3/ul (0.83-4.51); Lymphocyte % 30.1 % (19-41); Mean Corpuscular Hgb 29.1 pg (27.0-32.0); Mean Corpuscular Volume 88.2 fL (80-94); Mean Platelet Vol. 10.3 fl (6.2-12.0); Monocyte# 0.56 X10^3/uL; Monocyte% 5.3 % (0-10); NRBC Flagged by Analyzer 0 % (0-5); Neutrophil # 6.41 X10^3/uL (2.7-7.7); Platelet Count 385 K/mm3 (150-450); RBC Distribution Width CV 13.9 % (11.6-14.6); RBC Distribution Width SD 44.4 fl (35.1-43.9); Red Blood Count 3.64 M/mm3 (4.6-6.2); White Blood Count 10.5 K/mm3 (4.4-11.0)
[2021-06-22 05:30] LABS: ALB/GLOB Ratio 0.6 RATIO (0.9-2.4); AST(SGOT) 75 U/L (15-37); Alanine Aminotransfer ALT/SGPT 211 U/L (16-61); Albumin, Serum 2.3 g/dL (3.2-5.0); Alkaline Phosphatase 70 U/L (45-117); Anion Gap 9 (5-15); BUN 24 mg/dL (7-18); BUN/Creat Ratio 18.3 RATIO (10-20); Calcium,Total 7.7 mg/dL (8.5-10.1); Chloride 96 mmol/L (98-107); Cholesterol 109 mg/dL (200); Creatinine, Serum 1.31 mg/dL (0.70-1.30); EST Glomerular Filtration Rate 60 mL/min (>60); Est Glom Filt Rate - Afr Amer 73 mL/min (>60); Estimated Creatinine Clearance 65.01 ml/min; Globulin 3.8 g/dL (2.2-4.2); Glucose 118 mg/dL (74-106); High Density Lipoprotein 16 mg/dL; Potassium 3.7 mmol/L (3.5-5.1); Protein, Total 6.1 g/dL (6.4-8.2); Sodium Level 134 mmol/L (136-145); Triglycerides 228 mg/dL; Troponin-I HS 139 pg/mL (3.0-78.0); Very Low Density Lipoprotein 46 mg/dL (5-40)
[2021-06-22] MEDS: Enoxaparin 120 MG/0.8 ML Syringe 110 MG SC ×2 (08:44→22:22)
[2021-06-22] MEDS: Potassium Chloride Oral Tablet 20 MEQ 40 MEQ PO (08:45)
[2021-06-22] MEDS: Furosemide 40 MG/4 ML Vial IV ×2 (08:45→17:30)
[2021-06-22 09:19] LABS: HIV - WCH Non-Reactive (Nonreactive); Syphilis Antibodies Non-reactive
[2021-06-22 11:27] LABS: Malaria Blood Parasite Interp Negative (Negative); Malaria QC Review PASSED
--- NOTE | 2021-06-22 14:40 | CHAPLAIN ---
Type of Pastoral Visit _x__ Initial Visit ___ Follow-up Visit ___ On-call Visit ___ General Patient Visit ___ Spiritual Assessment ___ Family Conference ___ Bereavement ___ Rapid Response ___ Code Blue ___ Other (describe below) Pastoral Care Referral From _x__ Patient _x__ Family ___ Nurse ___ Physician ___ Sheet Rock Applicator ___ Flue Cleaner ___ Other (describe below) Sacrament/Intervention _x__ Active listening ___ Anointing ___ Mandaen ___ Bereavement ___ Communion _x__ Nafisa exploration ___ _x__ Life review _x__ Prayer ___ Reconciliation ___ Sacrament of Sick _x__ Supportive presence ___ Wedding ___ Other (describe below) Pastoral Comments patient and spouse very open to spiritual care support; both express their nafisa in God even though significant health changes have appeared for patient; pt and spouse speak of gratitude to hospital, staff, and God for the care received; pt is tearful briefly but states he is ready/able to face whatever lies before him; pt and spouse verbalize thankfulness for support given by this marketing/sales person; future visits would be welcome; prayer; couple has close ties to a local [employer]
[2021-06-22 17:15] LABS: Lyme Ab Screen Interpretation REF LAB
[2021-06-22] MEDS: 0.9% Saline Lock 10 ML Syringe IV (17:30)
--- NOTE | 2021-06-22 18:34 | PCM.CONS.C ---
Assessment & Plan Assessment/Plan (1) New onset a-fib: PLAN: The patient does have findings compatible with atrial fibrillation/flutter. The etiology is unclear at this time. However, there are concerns as to whether this is related to his recent febrile illness as well as concerns of any underlying cardiovascular condition either related to his history of congenital heart disease status post repair or an underlying cardiomyopathy. At the present time he is receiving rate control therapy. He is also on anticoagulant therapy. Over time, as his clinical course is further evaluated, consideration might be given as to how to approach his atrial fibrillation/flutter with continue rate control therapy, anticoagulant therapy, and consideration to antiarrhythmic therapy and/or possible future synchronized biphasic DC cardioversion. (2) Elevated troponin: PLAN: The patient has an elevated troponin I level. It has not significantly changed. There is concerned this may be a type II event related to his acute conditions with respect to his febrile illness and his atrial dysrhythmia. He does not present with classic signs/symptoms of an acute coronary syndrome nor does he have acute electrocardiographic changes. He has been evaluated with a transthoracic echocardiogram. It does not appear he has left ventricular regional wall motion abnormalities. Again, as his clinical course is further evaluated, consideration might be given as to how to further address his troponin I levels from a cardiac standpoint as to whether or not he requires additional noninvasive or invasive evaluation of his coronary anatomy/physiology. (3) ASD (atrial septal defect), ostium primum: PLAN: The patient states he was diagnosed with an atrial septal defect-ostium primum. He underwent surgical correction by Dr. Avendaoñ in [place] at approximately the age of 5. He states he has not had cardiovascular follow-up for potentially at least 10 years. His spouse states that they do have a copy of his cardiovascular records from [place] at home. She will bring these to the hospital for continuity of care purposes. 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 It underwent repair as well. He has been further assessed with a transthoracic echocardiogram as noted. (5) CHF (congestive heart failure): PLAN: The patient does have concerns of underlying CHF. Based upon his clinical history and objective studies including his transthoracic echocardiogram there are concerns as to whether or not he does have a form of an underlying cardiomyopathy. Based upon his echocardiogram there are concerns as to whether or not he may have an infiltrative type cardiomyopathy such as amyloidosis. Thus it may be reasonable to pursue additional noninvasive studies initially with respect to this concern. He does not appear to have all the classic findings for Jerson's endocarditis, sarcoidosis, hemochromatosis, Fabry disease, giant cell myocarditis, lymphocytic myocarditis, etc. Also, he does not appear to have perhaps the classic presentation of Lyme carditis which often involves conduction system disease as opposed to tachydysrhythmias. He will need to continue medical management for his symptomatic and objective findings compatible with underlying CHF. He may need further noninvasive evaluation such as cardiac MRI. He may need further invasive evaluation which may eventually include a diagnostic cardiac catheterization and potentially endomyocardial biopsy. Procedures such as cardiac MRI and endomyocardial biopsy would need to be performed at a tertiary care center. (6) Febrile illness: PLAN: The etiology of his febrile illness is still uncertain. He is being evaluated for multiple infectious disease related etiologies. Based upon his travels and potential concerns of tick bites it may be reasonable to evaluate him for Lyme disease as well. He has undergone previous blood cultures when he was reportedly not on antibiotic therapy which have been negative. This would seem to make the likelihood of an underlying infectious endocarditis less likely. It may also be reasonable to consider a formal infectious disease consultation. Addt'l Comments The patient's case was discussed and reviewed with the patient, his spouse, and Dr. Phoenix. This note was generated using a voice recognition system and there may be incorrect words, spelling or punctuation that were not noted when reviewing the office note prior to saving. 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 The patient states that he has been healthy in the past with no known cardiovascular history. He states he was doing well without any obvious concerns or complaints earlier this year traveling to [facility] on a hunting safari, [place], and [place] for a golfing trip, as well as hunting in his own [place], until May 2021. During that time he noted the relatively abrupt onset of a febrile illness and states he had temperatures of approximately 103 ?F. He did note various aches and pains . He states he was evaluated on more than one occasion either at an urgent care center or at the emergency department for his concerns. He states multiple COVID-19 tests were performed which were reported as negative. He subsequently presented back for reevaluation based on his ongoing concerns with the additional concerns of the sensation of tachycardia when lying supine, shortness of breath/dyspnea/orthopnea, and lower extremity peripheral pitting edema. He did not appear to recall any ongoing chest discomfort. There was no report of near syncope or syncope. He states he also had what appeared to be a rash with blanching on his anterior and posterior thorax. He was evaluated in the emergency department. He was found to have abnormal troponin I levels which have not significantly changed during his hospitalization. His cardiac evaluation demonstrated an ECG that demonstrated the appearance of underlying atrial fibrillation/flutter with a left axis deviation with a right bundle branch block pattern, and inferior my pattern of indeterminate age cannot be excluded, and nonspecific ST and T wave abnormality. His chest x-ray suggested findings of increased pulmonary vascularity/pleural effusion. A chest CTA was performed which was reported as negative for great vessel disease or thromboembolic disease. He is also subsequently undergone further evaluation with a transthoracic echocardiogram with the results as noted below. He was subsequently placed in the PCU for further evaluation and care. From a cardiovascular standpoint he was placed on medical therapy with IV diltiazem as well as IV furosemide. He states as his heart rate has improved and his volume status is improved he has felt better. He states while in [facility] on his hunting safari he noted all the animals had ticks. He believes he may have experienced tick bites around his ankle areas. He notes that his previous cardiac surgery was performed in [place] by Dr. Avendaño. He states following that he did have follow-up at [facility]. He does not recall any follow-up diagnostic studies being performed. He does not believe he has had any cardiovascular follow-up for potentially 10 years. [facility], [facility] Medical History (Updated 06/22/21 @ 18:[address] 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 Home Medications NK 03/06/21 [History Last Taken Unknown] Allergy/AdvReac Type Severity Reaction Status Date / Time grass pollen Allergy Intermediate u Verified 06/15/21 12:52 tree and shrub pollen Allergy Intermediate u Verified 06/15/21 12:52 Family History Other Asthma Heart disease Surgical History History of appendectomy Social History Smoking Status: Never smoker alcohol intake: current alcohol intake frequency: a few times a week Alcohol type: wine ROS Constitutional Constitutional: Reports body ache(s) and fever(s) Eyes Eyes: Reports as per HPI ENT HEENT: Reports as per HPI Cardiovascular Cardiovascular: Reports dyspnea, edema, irregular heart rhythm, orthopnea, palpitations and weight gain Respiratory/Chest Respiratory/Chest: Reports dyspnea Gastrointestinal Gastrointestinal: Reports as per HPI Genitourinary Genitourinary: Reports as per HPI Musculoskeletal Musculoskeletal: Reports as per HPI Integumentary Integumentary: Reports rash Neurologic Neurologic: Reports as per HPI Psychiatric Psychiatric: Reports as per HPI Physical Exam Const alert, oriented x3 and no apparent distress Orientation / Consciousness: awake HEENT normocephalic, head/scalp atraumatic and hearing grossly normal bilaterally Eyes PERRL, EOMs intact bilaterally and conjunctivae normal Neck full ROM, supple and no JVD Resp Auscultation: rhonchi throughout Cardio Rate: tachycardic Rhythm: abnormal rhythm irregularly irregular Heart Sounds: S1 normal, S2 normal and murmur systolic II/ harsh mid left sternal border and apex GI normal to inspection, nondistended, normoactive bowel sounds Extremity General Extremity: edema bilateral lower extremity Details: trace Skin Skin Narrative: Anterior and posterior thorax: Somewhat generally erythematous and blanching Neuro oriented x3, moves all extremities, no focal motor deficits and no sensory deficits noted Psych mental status grossly normal Risk Stratification Risk Stratification Applicable: Yes Age >/= 65: No >/= 3 CAD Risk Factors (HTN, HLD, DM, family hx of CAD, or current smoker): No Aspirin Use in the Past 7 Days: No Severe Angina (>/= episodes in 24 hours): No EKG ST Changes >/= 0.5mm: No Positive Cardiac Marker: Yes NIKOLAS Risk Stratification Score: 1 NIKOLAS % Risk: 5% Risk Objective Data Vital Signs: Vital Signs Temp Pulse Resp BP Pulse Ox 98.0 F 100 24 H 123/83 H 95 06/22/21 17:23 06/22/21 17:23 06/22/21 17:23 06/22/21 17:23 06/22/21 17:23 Oxygen Flow Rate (L/min) 2 Oxygen Delivery Method Room Air Weight: 233 lb 3.985 oz Body Mass Index (BMI) 33.6 Intake & Output: Intake and Output for Last 24 Hours 06/20/21 06/21/21 06/22/21 23:59 23:59 23:59 Intake Total 261.76 / 271.76 350.50 / 350.50 Balance 261.76 / 271.76 350.50 / 350.50 Lab / Micro Data Result Diagrams: 06/22/21 04:40 06/22/21 04:40 Labs: Laboratory Results - last 24 hr 06/21/21 14:50: Total Bilirubin 1.10 H, Direct Bilirubin 0.32 H, AST 106 H, ALT 262 H, Alkaline Phosphatase 83, Total Protein 6.5, Albumin 2.5 L, Globulin 4.0 06/21/21 14:50: Magnesium 2.5, Troponin I High Sens 144 H*, TSH 2.03 06/21/21 14:50: B-Natriuretic Peptide 1273.5 H 06/21/21 14:50: Magnesium Cancelled 06/21/21 18:35: Urine Color Straw, Urine Clarity Clear, Urine pH 6.5, Ur Specific [place] 1.010, Urine Protein Negative, Urine Glucose (UA) Normal, Urine Ketones Negative, Urine Occult Blood Negative, Urine Nitrite Negative, Urine Bilirubin Negative, Urine Urobilinogen Normal, Ur Leukocyte Esterase Negative, Urine RBC 0 SEEN, Urine WBC 0 SEEN, Ur Squamous Epith Cells 0 SEEN, Urine Bacteria 0 SEEN, Urine Mucus 0 SEEN 06/21/21 23:20: Malaria Smear Interp Negative, Malaria % Parasitism 0.00 06/21/21 23:20: Syphilis Total Ab Non-reactive, HIV 1&2 Antibody Non-Reactive 06/21/21 23:20: Troponin I High Sens 139 H* 06/22/21 00:55: Troponin I High Sens 141 H* 06/22/21 04:40: WBC 10.5, RBC 3.64 L, Hgb 10.6 L, Hct 32.1 L, MCV 88.2, MCH 29.1, MCHC 33.0, RDW Std Deviation 44.4 H, RDW Coeff of Arnold 13.9, Plt Count 385, MPV 10.3, Immature Gran % (Auto) 1.800 H, Neut % (Auto) 61.0, Lymph % (Auto) 30.1, [place] % (Auto) 5.3, Eos % (Auto) 1.1, Baso % (Auto) 0.7, Absolute Neuts (auto) 6.4, Absolute Lymphs (auto) 3.16, Nucleated RBC % 0 06/22/21 04:40: Sodium 134 L, Potassium 3.7, Chloride 96 L, Carbon Dioxide 29.0, Anion Gap 9, BUN 24 H, Creatinine 1.31 H, Estim Creat Clear Calc 65.01, Est GFR (MDRD) Af Amer 73, Est GFR (MDRD) Non-Af 60, BUN/Creatinine Ratio 18.3, Glucose 118 H, Calcium 7.7 L, Total Bilirubin 1.10 H, AST 75 H, ALT 211 H, Alkaline Phosphatase 70, Troponin I High Sens 139 H*, Total Protein 6.1 L, Albumin 2.3 L, Globulin 3.8, Albumin/Globulin Ratio 0.6 L, Triglycerides 228 H, Cholesterol 109, LDL Cholesterol 47, VLDL Cholesterol 46 H, HDL Cholesterol 16 L Micro: Microbiology 06/21/21 21:45 Mucosa - Nasopharyngeal Rapid RSV (DFA) - Final Cardiology Labs/Tests 06/21/21 14:50: Total Bilirubin 1.10 H, Direct Bilirubin 0.32 H 06/21/21 14:50: Magnesium 2.5 06/21/21 14:50: B-Natriuretic Peptide 1273.5 H 06/21/21 14:50: Magnesium Cancelled 06/21/21 18:35: Urine Color Straw, Urine Clarity Clear, Urine pH 6.5, Ur Specific [place] 1.010, Urine Protein Negative, Urine Glucose (UA) Normal, Urine Ketones Negative, Urine Occult Blood Negative, Urine Nitrite Negative, Urine Bilirubin Negative, Urine Urobilinogen Normal, Ur Leukocyte Esterase Negative, Urine RBC 0 SEEN, Urine WBC 0 SEEN 06/22/21 04:40: WBC 10.5, RBC 3.64 L, Hgb 10.6 L, Hct 32.1 L, MCV 88.2, MCH 29.1, MCHC 33.0, Plt Count 385, MPV 10.3, Immature Gran % (Auto) 1.800 H, Neut % (Auto) 61.0, Lymph % (Auto) 30.1, [place] % (Auto) 5.3, Eos % (Auto) 1.1, Baso % (Auto) 0.7, Absolute Neuts (auto) 6.4, Nucleated RBC % 0 06/22/21 04:40: Sodium 134 L, Potassium 3.7, Chloride 96 L, Carbon Dioxide 29.0, Anion Gap 9, BUN 24 H, Creatinine 1.31 H, Est GFR (MDRD) Af Amer 73, Est GFR (MDRD) Non-Af 60, BUN/Creatinine Ratio 18.3, Glucose 118 H, Calcium 7.7 L, Total Bilirubin 1.10 H, Triglycerides 228 H, Cholesterol 109, LDL Cholesterol 47, VLDL Cholesterol 46 H, HDL Cholesterol 16 L Rhythm: As noted above EKG: As noted above ECHO: As noted below Radiography Diagnostic Testing: Radiology Impression Chest CTA 06/21/21 17:47 IMPRESSION: Negative CTA Chest. Cardiomegaly with pulmonary findings of pulmonary edema versus infection. Evidence of right heart strain. Mediastinal adenopathy. Recommend short-term follow-up for resolution. Individualized dose optimization techniques were used for this CT. at 1928 Reported and signed by: Anshul Melgar MD Electronically Signed: Anshul Melgar MD at 19:27 EST Tel , Service support , Echocardiogram 06/21/21 21:05 Interpretation Summary The study was technically difficult. Left ventricular systolic function is normal. The estimated ejection fraction is 65 %. The global longitudinal strain = -12% (abnormal). D shaped septum in systole and diastole. Severe concentric left ventricular hypertrophy. Mildly dilated right ventricle. Mild global right ventricular systolic dysfunction. Based upon the 2D echocardiographic images obtained the RV free wall appears thickened. The left atrium is moderately enlarged. The right atrium is mildly enlarged. Anterior leaflet diffuse mitral valve thickening. Severe focal mitral valve calcification of the anterior leaflet. The mitral valve chordae are thickened and/or calcified. The mitral papillary muscle appears thickened. Moderate (2+) eccentric mitral valve insufficiency. Mild tricuspid valve insufficiency. Mild focal aortic valve thickening. Trivial pulmonic valve insufficiency. Right ventricular systolic pressure estimated to be 57 mmHg. There is evidence of diastolic dysfunction. Comment: The global longitudinal strain map suggests a bull's-eye type pattern potentially compatible with amyloidosis. Ordering Physician: Fabio Gallagher Referring Physician: ASHWIN PARADA Performed By: Dahiana Rodriguez, RDCS, RVT
--- NOTE | 2021-06-22 20:12 | PN.HOSP_ITS ---
Subjective Subjective Breathing much better today than he was when he came in. Unsure as the etiology of all of his issues, has been having low-grade fever at home which could have potentially potentiated his A. fib. He does have a history of ASD repair as a child. He is also had international travel in the last several months, Covid was negative. He is also describing a rash that is blanching and not itchy but seems to have improved a little bit Objective Data Objective Data Vital Signs: Vital Signs Temp Pulse Resp BP Pulse Ox 98.0 F 92 26 H 124/74 H 93 06/22/21 17:23 06/22/21 20:05 06/22/21 20:05 06/22/21 20:05 06/22/21 20:05 Oxygen Flow Rate (L/min) 2 Oxygen Delivery Method Room Air Weight: 231 lb 0.711 oz Body Mass Index (BMI) 33.6 Intake & Output: Intake and Output for Last 24 Hours 06/21/21 06/22/21 06/23/21 03:59 03:59 03:59 Intake Total 301.76 / 311.76 602.33 / 602.33 Output Total 1400 / 1400 Balance 301.76 / 311.76 -797.67 / -797.67 Lab / Micro Data Result Diagrams: 06/23/21 05:49 06/23/21 05:49 Labs: Laboratory Results - last 24 hr 06/21/21 14:50: Magnesium Cancelled 06/21/21 23:20: Malaria Smear Interp Negative, Malaria % Parasitism 0.00 06/21/21 23:20: Syphilis Total Ab Non-reactive, HIV 1&2 Antibody Non-Reactive 06/21/21 23:20: Troponin I High Sens 139 H* 06/22/21 00:55: Troponin I High Sens 141 H* 06/22/21 04:40: WBC 10.5, RBC 3.64 L, Hgb 10.6 L, Hct 32.1 L, MCV 88.2, MCH 29.1, MCHC 33.0, RDW Std Deviation 44.4 H, RDW Coeff of Arnold 13.9, Plt Count 385, MPV 10.3, Immature Gran % (Auto) 1.800 H, Neut % (Auto) 61.0, Lymph % (Auto) 30.1, [place] % (Auto) 5.3, Eos % (Auto) 1.1, Baso % (Auto) 0.7, Absolute Neuts (auto) 6.4, Absolute Lymphs (auto) 3.16, Nucleated RBC % 0 06/22/21 04:40: Sodium 134 L, Potassium 3.7, Chloride 96 L, Carbon Dioxide 29.0, Anion Gap 9, BUN 24 H, Creatinine 1.31 H, Estim Creat Clear Calc 65.01, Est GFR (MDRD) Af Amer 73, Est GFR (MDRD) Non-Af 60, BUN/Creatinine Ratio 18.3, Glucose 118 H, Calcium 7.7 L, Total Bilirubin 1.10 H, AST 75 H, ALT 211 H, Alkaline Phosphatase 70, Troponin I High Sens 139 H*, Total Protein 6.1 L, Albumin 2.3 L, Globulin 3.8, Albumin/Globulin Ratio 0.6 L, Triglycerides 228 H, Cholesterol 109, LDL Cholesterol 47, VLDL Cholesterol 46 H, HDL Cholesterol 16 L Micro: Microbiology 06/21/21 21:45 Mucosa - Nasopharyngeal Rapid RSV (DFA) - Final Radiography Diagnostic Testing: Radiology Impression Echocardiogram 06/21/21 21:05 Interpretation Summary The study was technically difficult. Left ventricular systolic function is normal. The estimated ejection fraction is 65 %. The global longitudinal strain = -12% (abnormal). D shaped septum in systole and diastole. Severe concentric left ventricular hypertrophy. Mildly dilated right ventricle. Mild global right ventricular systolic dysfunction. Based upon the 2D echocardiographic images obtained the RV free wall appears thickened. The left atrium is moderately enlarged. The right atrium is mildly enlarged. Anterior leaflet diffuse mitral valve thickening. Severe focal mitral valve calcification of the anterior leaflet. The mitral valve chordae are thickened and/or calcified. The mitral papillary muscle appears thickened. Moderate (2+) eccentric mitral valve insufficiency. Mild tricuspid valve insufficiency. Mild focal aortic valve thickening. Trivial pulmonic valve insufficiency. Right ventricular systolic pressure estimated to be 57 mmHg. There is evidence of diastolic dysfunction. Comment: The global longitudinal strain map suggests a bull's-eye type pattern potentially compatible with amyloidosis. Ordering Physician: Fabio Gallagher Referring Physician: ASHWIN PARADA Performed By: Dahiana Rodriguez, RDCS, RVT Physical Exam Const alert, oriented x3 and no apparent distress General Appearance: cooperative HEENT normocephalic and moist oral mucous membranes Eyes PERRL, EOMs intact bilaterally and conjunctivae normal Neck supple and no JVD Resp normal respiratory effort, no retractions and no use of accessory muscles Auscultation: diminished lung sounds; Negative for crackles, rales, rhonchi or wheezes Cardio regular rate, regular rhythm, S1 normal heart sound, S2 normal heart sound and no murmurs GI soft to palpation, non-tender and non-distended; Negative for hepatosplenomegaly Extremity no clubbing, cyanosis or edema Skin Skin Narrative: Diffuse redness on his chest and upper abdomen, no clear signs of demarcation, its not pruritic. There is blanching but it is not raised and there is no papules Neuro no focal motor deficits and no sensory deficits noted Psych affect normal Appearance: appropriate Assessment & Plan Assessment/Plan (1) New onset a-fib: (2) CHF (congestive heart failure): (3) Liver enzyme elevation: (4) Elevated troponin: PLAN: 1. New onset A. fib with signs of heart failure/elevated troponin ?No previous history of heart failure or any cardiac disease. He did have a history of an ASD repair when he was a child ?[id number] is a 1-2 based on his newly diagnosed heart failure as well as the possible history of hypertension though he does not take any medications ?Will discuss with cardiology the need for anticoagulation ?Continue with Cardizem and start him on Coreg ?Given his international travel he has been tested for malaria, hepatitis, syphilis, HIV. His HIV, malaria, and syphilis test have all come back negative, hepatitis panel is pending. LFTs are little bit elevated but he denies any right upper quadrant abdominal pain ?Elevated troponins likely secondary to his A. fib 2. Elevated LFTs/fever of unknown origin ?Unsure if this is related to the cause of his heart failure or if it is coin cidental ?Malaria is negative hepatitis panel is pending ?We will trend LFTs ?We will check Lyme titers given his travel and his description of being bitten by several ticks ?CT of the chest was unremarkable except there was some mediastinal adenopathy but no signs of pneumonia DVT: Therapeutic Lovenox Charges/Coding Visit Charges Inpatient E&M: 37010 Subs Hosp L2
[2021-06-23] VITALS (28 sets, daily range): BP systolic 109–164; BP diastolic 57–93; PULSE 68–94; RESP 11–27; TEMP 37–37.8; O2SAT 92–96
[2021-06-23 04:07] LABS: HEPATITIS B SURFACE AG Negative (Negative); Hepatitis A IgM Antibody Negative (Negative); Hepatitis B Core AB IgM Negative (Negative)
--- NOTE | 2021-06-23 05:55 | EKG12_ITS ---
Test Reason : AM Blood Pressure : / mmHG Vent. Rate : 071 BPM Atrial Rate : 202 BPM P-R Int : 000 ms QRS Dur : 126 ms QT Int : 400 ms P-R-T Axes : -74 -65 132 degrees QTc Int : 434 ms Atrial flutter with variable A-V block Left axis deviation Right bundle branch block Left ventricular hypertrophy with repolarization abnormality Inferior infarct , age undetermined Abnormal ECG When compared with ECG of 23-JUN-2021 05:10, MANUAL COMPARISON REQUIRED, DATA IS UNCONFIRMED Confirmed by WILL BORDEN, LILIANA ([id number]), clinical editor LUBNA COSME ([id number]) on 07/01/2021 2:03:49 PM Referred By: CRISTAL Confirmed By:ABRAM SOLIS MD
[2021-06-23 06:33] LABS: Absolute Lymphocyte Count 3.28 X10^3/uL (0.83-4.51); Absolute Neutrophil Count 5.5 X10^3/uL (2.0-7.7); Basophil# 0.04 X10^3/uL; Basophil% 0.4 % (0-1); Eosinophil# 0.13 X10^3/uL; Eosinophils% 1.4 % (0-5); Hematocrit 35.4 % (40-54); Hemoglobin 11.6 g/dL (13.0-16.5); Lymphocyte # 3.28 X10^3/ul (0.83-4.51); Lymphocyte % 34.2 % (19-41); Mean Corp Hgb Conc 32.8 g/dL (32-36); Mean Corpuscular Hgb 29.1 pg (27.0-32.0); Mean Corpuscular Volume 88.7 fL (80-94); Mean Platelet Vol. 10.2 fl (6.2-12.0); Monocyte# 0.57 X10^3/uL; Monocyte% 5.9 % (0-10); NRBC Flagged by Analyzer 0 % (0-5); Neutrophil # 5.49 X10^3/uL (2.7-7.7); Neutrophil % 57.2 % (47-70); POSITIVE MORPHOLOGY YES; Platelet Count 436 K/mm3 (150-450); RBC Distribution Width CV 13.8 % (11.6-14.6); RBC Distribution Width SD 44.6 fl (35.1-43.9); Red Blood Count 3.99 M/mm3 (4.6-6.2); White Blood Count 9.6 K/mm3 (4.4-11.0)
[2021-06-23 06:40] LABS: Differential Indicated SCAN CRITERIA MET
[2021-06-23 06:56] LABS: Anion Gap 9 (5-15); BUN 23 mg/dL (7-18); BUN/Creat Ratio 19.8 RATIO (10-20); Calcium,Total 8.3 mg/dL (8.5-10.1); Chloride 97 mmol/L (98-107); Creatinine, Serum 1.16 mg/dL (0.70-1.30); EST Glomerular Filtration Rate 69 mL/min (>60); Est Glom Filt Rate - Afr Amer 84 mL/min (>60); Estimated Creatinine Clearance 73.42 ml/min; Glucose 115 mg/dL (74-106); Potassium 3.7 mmol/L (3.5-5.1); Sodium Level 135 mmol/L (136-145)
[2021-06-23 07:02] LABS: Differential Comment SCANNED
--- NOTE | 2021-06-23 09:38 | PCM.PN.CARD ---
Subjective Subjective The patient believes he feels somewhat better overall. However he states he still senses his heart rate being somewhat faster than his usual heart rate which she states makes it difficult for him to sleep at night. He is not complaining of ongoing chest discomfort or worsening shortness of breath/dyspnea or orthopnea/PND. He states his peripheral pitting edema is improving. Objective Data Vital Signs: Vital Signs Temp Pulse Resp BP Pulse Ox 98.8 F 91 11 L 146/93 H 92 06/23/21 06:00 06/23/21 07:00 06/23/21 07:00 06/23/21 07:00 06/23/21 07:20 Oxygen Flow Rate (L/min) 2 Oxygen Delivery Method Nasal Cannula Weight: 229 lb 0.964 oz Body Mass Index (BMI) 33.6 Intake & Output: Intake and Output for Last 24 Hours 06/21/21 06/22/21 06/23/21 23:59 23:59 23:59 Intake Total 261.76 / 271.76 671.50 / 681.50 87.33 / 87.33 Output Total 1400 / 1400 Balance 261.76 / 271.76 -728.50 / -718.50 87.33 / 87.33 Lab / Micro Data Result Diagrams: 06/23/21 05:49 06/23/21 05:49 Labs: Laboratory Results - last 24 hr 06/21/21 23:20: Malaria Smear Interp Negative, Malaria % Parasitism 0.00 06/23/21 05:49: WBC 9.6, RBC 3.99 L, Hgb 11.6 L, Hct 35.4 L, MCV 88.7, MCH 29.1, MCHC 32.8, RDW Std Deviation 44.6 H, RDW Coeff of Arnold 13.8, Plt Count 436, MPV 10.2, Immature Gran % (Auto) 0.900, Neut % (Auto) 57.2, Lymph % (Auto) 34.2, [place] % (Auto) 5.9, Eos % (Auto) 1.4, Baso % (Auto) 0.4, Absolute Neuts (auto) 5.5, Absolute Lymphs (auto) 3.28, Nucleated RBC % 0, Differential Comment SCANNED 06/23/21 05:49: Sodium 135 L, Potassium 3.7, Chloride 97 L, Carbon Dioxide 29.0, Anion Gap 9, BUN 23 H, Creatinine 1.16, Estim Creat Clear Calc 73.42, Est GFR (MDRD) Af Amer 84, Est GFR (MDRD) Non-Af 69, BUN/Creatinine Ratio 19.8, Glucose 115 H, Calcium 8.3 L Cardiology Labs/Tests 06/23/21 05:49: WBC 9.6, RBC 3.99 L, Hgb 11.6 L, Hct 35.4 L, MCV 88.7, MCH 29.1, MCHC 32.8, Plt Count 436, MPV 10.2, Immature Gran % (Auto) 0.900, Neut % (Auto) 57.2, Lymph % (Auto) 34.2, [place] % (Auto) 5.9, Eos % (Auto) 1.4, Baso % (Auto) 0.4, Absolute Neuts (auto) 5.5, Nucleated RBC % 0 06/23/21 05:49: Sodium 135 L, Potassium 3.7, Chloride 97 L, Carbon Dioxide 29.0, Anion Gap 9, BUN 23 H, Creatinine 1.16, Est GFR (MDRD) Af Amer 84, Est GFR (MDRD) Non-Af 69, BUN/Creatinine Ratio 19.8, Glucose 115 H, Calcium 8.3 L Rhythm: Sinus rhythm EKG: Sinus rhythm; prolonged VT interval; continued underlying IVCD/right bundle branch block pattern ECHO: As noted below Radiography Diagnostic Testing: Radiology Impression Echocardiogram 06/21/21 21:05 Interpretation Summary The study was technically difficult. Left ventricular systolic function is normal. The estimated ejection fraction is 65 %. The global longitudinal strain = -12% (abnormal). D shaped septum in systole and diastole. Severe concentric left ventricular hypertrophy. Mildly dilated right ventricle. Mild global right ventricular systolic dysfunction. Based upon the 2D echocardiographic images obtained the RV free wall appears thickened. The left atrium is moderately enlarged. The right atrium is mildly enlarged. Anterior leaflet diffuse mitral valve thickening. Severe focal mitral valve calcification of the anterior leaflet. The mitral valve chordae are thickened and/or calcified. The mitral papillary muscle appears thickened. Moderate (2+) eccentric mitral valve insufficiency. Mild tricuspid valve insufficiency. Mild focal aortic valve thickening. Trivial pulmonic valve insufficiency. Right ventricular systolic pressure estimated to be 57 mmHg. There is evidence of diastolic dysfunction. Comment: The global longitudinal strain map suggests a bull's-eye type pattern potentially compatible with amyloidosis. Ordering Physician: Fabio Gallagher Referring Physician: ASHWIN PARADA Performed By: Dahiana Rodriguez, RDCS, RVT Physical Exam Const alert, oriented x3 and no apparent distress Orientation / Consciousness: awake HEENT normocephalic, head/scalp atraumatic and hearing grossly normal bilaterally Eyes PERRL, EOMs intact bilaterally and conjunctivae normal Neck full ROM, supple and no JVD Resp Auscultation: rhonchi throughout Cardio Rate: regular rate Rhythm: regular rhythm and abnormal rhythm irregularly irregular Heart Sounds: S1 normal, S2 normal, gallop S4 gallop, murmur systolic II/ harsh mid left sternal border and apex and other GI normal to inspection, nondistended, normoactive bowel sounds Extremity General Extremity: edema bilateral lower extremity Details: trace Skin Skin Narrative: Anterior and posterior thorax: Somewhat generally erythematous and blanching Neuro oriented x3, moves all extremities, no focal motor deficits and no sensory deficits noted Psych mental status grossly normal Assessment & Plan Assessment/Plan (1) New onset a-fib: PLAN: The patient does have findings compatible with atrial fibrillation/flutter. The etiology is unclear at this time. However, there are concerns as to whether this is related to his recent febrile illness as well as concerns of any underlying cardiovascular condition either related to his history of congenital heart disease status post repair or an underlying cardiomyopathy. It appears, based on the patient's cardiac rhythm strip and his twelve-lead ECG, that he has returned to sinus rhythm with a prolonged VT interval superimposed upon his underlying previous conduction system abnormality. An attempt will be made to alter his IV diltiazem to an oral agent such as a beta-madi to assist with rate control and also potentially benefit his underlying other cardiovascular concerns. He will continue his anticoagulant therapy at this time. Eventually he will need to be considered for conversion to an oral systemic anticoagulant. (2) Elevated troponin: PLAN: The patient has an elevated troponin I level. It has not significantly changed. There is concerned this may be a type II event related to his acute conditions with respect to his febrile illness and his atrial dysrhythmia. He does not present with classic signs/symptoms of an acute coronary syndrome nor does he have acute electrocardiographic changes. He has been evaluated with a transthoracic echocardiogram. It does not appear he has left ventricular regional wall motion abnormalities. Further evaluation of his elevated troponins with respect to any underlying CAD can be considered with respect to additional studies such as diagnostic cardiac catheterization. The timing of this may depend upon his underlying infectious disease concerns/evaluation as well as his other cardiovascular issues. (3) ASD (atrial septal defect), ostium primum: PLAN: The patient states he was diagnosed with an atrial septal defect-ostium primum. He underwent surgical correction by Dr. Avendaño in [place] at approximately the age of 5. He states he has not had cardiovascular follow-up for potentially at least 10 years. His spouse states that they do have a copy of his cardiovascular records from [place] at home. She will bring these to the hospital for continuity of care purposes. 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 It underwent repair as well. He has been further assessed with a transthoracic echocardiogram as noted. (5) CHF (congestive heart failure): PLAN: The patient does have concerns of underlying CHF. Based upon his clinical history and objective studies including his transthoracic echocardiogram there are concerns as to whether or not he does have a form of an underlying cardiomyopathy. Based upon his echocardiogram there are concerns as to whether or not he may have an infiltrative type cardiomyopathy such as amyloidosis. Thus it may be reasonable to pursue additional noninvasive studies initially with respect to this concern. He does not appear to have all the classic findings for Jerson's endocarditis, sarcoidosis, hemochromatosis, Fabry disease, giant cell myocarditis, lymphocytic myocarditis, etc. Also, he does not appear to have perhaps the classic presentation of Lyme carditis which often involves conduction system disease as opposed to tachydysrhythmias. He will need to continue medical management for his symptomatic and objective findings compatible with underlying CHF. He may need further noninvasive evaluation such as cardiac MRI. He may need further invasive evaluation which may eventually include an endomyocardial biopsy. Procedures such as cardiac MRI and endomyocardial biopsy would need to be performed at a tertiary care center such as [facility]. (6) Febrile illness: PLAN: The etiology of his febrile illness is still uncertain. He is being evaluated for multiple infectious disease related etiologies. Based upon his travels and potential concerns of tick bites it may be reasonable to evaluate him for Lyme disease as well. He has undergone previous blood cultures when he was reportedly not on antibiotic therapy which have been negative. This would seem to make the likelihood of an underlying infectious endocarditis less likely. It would be reasonable to consider a formal infectious disease consultation for continued input on additional evaluation and care. Addt'l Comments This note was generated using a voice recognition system and there may be incorrect words, spelling or punctuation that were not noted when reviewing the office note prior to saving.
--- NOTE | 2021-06-23 10:10 | PN.HOSP_ITS ---
Subjective Subjective Feels even better today, he has returned to normal sinus rhythm. Still has a rash and has been having some low-grade fevers though nothing significant Objective Data Objective Data Vital Signs: Vital Signs Temp Pulse Resp BP Pulse Ox 98.8 F 91 11 L 146/93 H 92 06/23/21 06:00 06/23/21 07:00 06/23/21 07:00 06/23/21 07:00 06/23/21 07:20 Oxygen Flow Rate (L/min) 2 Oxygen Delivery Method Nasal Cannula Weight: 229 lb 0.964 oz Body Mass Index (BMI) 33.6 Intake & Output: Intake and Output for Last 24 Hours 06/22/21 06/23/21 06/24/21 03:59 03:59 03:59 Intake Total 301.76 / 311.76 671.50 / 671.50 47.33 / 47.33 Output Total 1400 / 1400 Balance 301.76 / 311.76 -728.50 / -728.50 47.33 / 47.33 Lab / Micro Data Result Diagrams: 06/23/21 05:49 06/23/21 05:49 Labs: Laboratory Results - last 24 hr 06/21/21 23:20: Malaria Smear Interp Negative, Malaria % Parasitism 0.00 06/23/21 05:49: WBC 9.6, RBC 3.99 L, Hgb 11.6 L, Hct 35.4 L, MCV 88.7, MCH 29.1, MCHC 32.8, RDW Std Deviation 44.6 H, RDW Coeff of Arnold 13.8, Plt Count 436, MPV 10.2, Immature Gran % (Auto) 0.900, Neut % (Auto) 57.2, Lymph % (Auto) 34.2, [place] % (Auto) 5.9, Eos % (Auto) 1.4, Baso % (Auto) 0.4, Absolute Neuts (auto) 5.5, Absolute Lymphs (auto) 3.28, Nucleated RBC % 0, Differential Comment SCANNED 06/23/21 05:49: Sodium 135 L, Potassium 3.7, Chloride 97 L, Carbon Dioxide 29.0, Anion Gap 9, BUN 23 H, Creatinine 1.16, Estim Creat Clear Calc 73.42, Est GFR (MDRD) Af Amer 84, Est GFR (MDRD) Non-Af 69, BUN/Creatinine Ratio 19.8, Glucose 115 H, Calcium 8.3 L Micro: Microbiology 06/21/21 21:45 Mucosa - Nasopharyngeal Rapid RSV (DFA) - Final Radiography Diagnostic Testing: Radiology Impression Echocardiogram 06/21/21 21:05 Interpretation Summary The study was technically difficult. Left ventricular systolic function is normal. The estimated ejection fraction is 65 %. The global longitudinal strain = -12% (abnormal). D shaped septum in systole and diastole. Severe concentric left ventricular hypertrophy. Mildly dilated right ventricle. Mild global right ventricular systolic dysfunction. Based upon the 2D echocardiographic images obtained the RV free wall appears thickened. The left atrium is moderately enlarged. The right atrium is mildly enlarged. Anterior leaflet diffuse mitral valve thickening. Severe focal mitral valve calcification of the anterior leaflet. The mitral valve chordae are thickened and/or calcified. The mitral papillary muscle appears thickened. Moderate (2+) eccentric mitral valve insufficiency. Mild tricuspid valve insufficiency. Mild focal aortic valve thickening. Trivial pulmonic valve insufficiency. Right ventricular systolic pressure estimated to be 57 mmHg. There is evidence of diastolic dysfunction. Comment: The global longitudinal strain map suggests a bull's-eye type pattern potentially compatible with amyloidosis. Ordering Physician: Fabio Gallagher Referring Physician: ASHWIN PARADA Performed By: Dahiana Rodriguez, RDCS, RVT Physical Exam Narrative Const alert, oriented x3 and no apparent distress General Appearance: cooperative HEENT normocephalic and moist oral mucous membranes Eyes PERRL, EOMs intact bilaterally and conjunctivae normal Neck supple and no JVD Resp normal respiratory effort, no retractions and no use of accessory muscles Auscultation: diminished lung sounds; Negative for crackles, rales, rhonchi or wheezes Cardio regular rate, regular rhythm, S1 normal heart sound, S2 normal heart sound and no murmurs GI soft to palpation, non-tender and non-distended; Negative for hepatosplenomegaly Extremity no clubbing, cyanosis or edema Skin Skin Narrative: Diffuse redness on his chest and upper abdomen, no clear signs of demarcation, its not pruritic. There is blanching but it is not raised and there is no papules Neuro no focal motor deficits and no sensory deficits noted Psych affect normal Appearance: appropriate Assessment & Plan Assessment/Plan (1) New onset a-fib: (2) CHF (congestive heart failure): (3) Liver enzyme elevation: (4) Elevated troponin: PLAN: 1. New onset A. fib with signs of acute diastolic heart failure/elevated troponin ?No previous history of heart failure or any cardiac disease. He did have a history of an ASD repair when he was a child ?[id number] is a 1-2 based on his newly diagnosed heart failure as well as the possible history of hypertension though he does not take any medications ?We will likely need Eliquis on discharge ?Echo demonstrated a strain pattern consistent with an infiltrative disease like amyloidosis. UA protein was normal and total body protein was also normal however will obtain a serum protein electrophoresis. EF was 65% with severe concentric left ventricular hypertrophy he had mild global right ventricular systolic dysfunction left atrium was enlarged right atrium was enlarged and then signs of his previous ASD. His RVSP was 57 mmHg ?Continue with Cardizem and start him on Coreg ?Given his international travel he has been tested for malaria, hepatitis, syphilis, HIV. His HIV, malaria, and syphilis test have all come back negative, hepatitis panel is pending. LFTs are little bit elevated but he denies any right upper quadrant abdominal pain ?Elevated troponins likely secondary to his A. fib 2. Elevated LFTs/fever of unknown origin ?Unsure if this is related to the cause of his heart failure or if it is coincidental ?Malaria is negative hepatitis panel is pending ?We will trend LFTs ?We will check Lyme titers given his travel and his description of being bitten by several ticks ?CT of the chest was unremarkable except there was some mediastinal adenopathy but no signs of pneumonia ?His LFTs are still little bit elevated though trending down, will obtain an ultrasound of his liver and consult infectious disease. DVT: Therapeutic Lovenox Charges/Coding Visit Charges Inpatient E&M: 11519 Subs Hosp L2
--- NOTE | 2021-06-23 10:13 | US_ITS ---
STUDY: ABDOMINAL ULTRASOUND - RIGHT UPPER QUADRANT REASON FOR VISIT: Male, 55 years old elevated lfts with rash and fever -- NOT NPO -WILL DO AFTER 5PM TECHNIQUE: Ultrasound evaluation of the right upper quadrant was performed with real-time and static nicole-scale imaging. TECHNICAL QUALITY: Adequate. COMPARISON: None. FINDINGS: Liver: The liver is enlarged measures 19 cm. There is normal echogenicity of the liver. The bile ducts are within normal limits. There is hepatic color flow. The direction of portal flow is hepatopetal. There is no demonstrated mass lesion. Gallbladder: Normal distended gallbladder. The gallbladder wall measures 4 mm. There is a negative sonographic Granadso''s sign. There is no pericholecystic fluid. There are no gallstones. Small amount of sludge is seen in the gallbladder lumen. Common Bile Duct (C.B.D.): The common bile duct measures 4 mm. Pancreas: Normal size of the head, body and tail of the pancreas. There is normal echogenicity of the pancreas. There is no demonstrated pancreatic mass or cyst. Right Kidney: Normal size of the right kidney. The right kidney measures 11.3 cm x 5.9 cm x 4.8 cm. Normal renal cortex. The right cortex measures 1.9 cm. There is no demonstrated renal mass or cyst. There is no right hydronephrosis. Incidental note is made of a small right pleural effusion. US/Liver IMPRESSION: Sludge is seen within the gallbladder lumen. Mild hepatomegaly. Small right pleural effusion. Electronically Signed: Brian Angeles MD at 8:06 EST , Service support ,
[2021-06-23] MEDS: Potassium Chloride Oral Tablet 20 MEQ 40 MEQ PO (10:39)
[2021-06-23] MEDS: Enoxaparin 120 MG/0.8 ML Syringe 110 MG SC ×2 (10:39→22:20)
[2021-06-23] MEDS: 0.9% Saline Lock 10 ML Syringe IV ×2 (10:40→18:23)
[2021-06-23] MEDS: Furosemide 40 MG/4 ML Vial IV ×2 (10:40→18:23)
[2021-06-23] MEDS: Carvedilol 3.125 MG TABLET PO (11:04)
--- NOTE | 2021-06-23 13:53 | CON.PCM.ID_ITS ---
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 LFTs improving. Headache, myalgias, fatigue, and fever all resolved. Will check cmv, ebv, and covid Abs to try to confirm the diagnosis. Low suspicion for cat scratch given symptoms and exam findings. Will follow, thank you, d/w Dr. Phoenix HPI Consult Data Date of Consult: 06/23/21 HPI Narrative HPI Narrative: CHANI TREVIZO, is a 55 M with h/o congenital heart surgery, presented with sx starting 06/11 in the evening with headache, fatigue, aches, fever, diarrhea, and chills. Went to urgent care, covid was neg. Sx worsened, came to ED here 06/15, covid neg, flu neg. Was taking tylenol and advil at home without improvement, developed diffuse redness on trunk, some itching on feet. Fever up to 103.7. Was drinking a lot of fluids, gained about 10lbs, came back with worsening dyspnea and tachycardia. Covid neg again, dx with CHF and afib with rvr, seen by cardiology. No abx given during this whole time (except for 1- 2 doses of doxy he had left over at home). Now, fever resolved, diarrhea re solved, headache/aches resolved. Still on dilt gtt. Full ROS performed and neg except as noted above. No change in taste/smell. No lymphadenopathy. 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 Was scratched by cat on L wrist around 06/09 but wound healed well. Was cut on razor while in the muck in a barn while trimming horse's hoof recently. Traveled to [place] 03/10-03/19 for [place], was petting giraffes and killed a cape buffalo, kudu, others. Did get ticks daily there but did daily inspections for them. No malaria prophylaxis, no mosquito bites. Was in [facility] in Feb. Went to [place] in early winter, no tick bites. Lives with who has been feeling fine. He and her are due for covid booster next week. 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 Home Medications NK 03/06/21 [History Last Taken Unknown] Allergy/AdvReac Type Severity Reaction Status Date / Time grass pollen Allergy Intermediate u Verified 06/15/21 12:52 tree and shrub pollen Allergy Intermediate u Verified 06/15/21 12:52 Family History Other Asthma Heart disease Surgical History History of appendectomy Social History Smoking Status: Never smoker alcohol intake: current alcohol intake frequency: a few times a week Alcohol type: wine Physical Exam Const alert and oriented x3 General Appearance: cooperative Exam Limitations: no limitations HEENT normocephalic and head/scalp atraumatic Eyes PERRL Neck supple and No nodes Resp normal air movement and clear to auscultation bilaterally Cardio regular rate and regular rhythm Heart Sounds: murmur GI normal to inspection, nondistended, normoactive bowel sounds Extremity no clubbing, cyanosis or edema Extremity Narrative: No lymphadepathy in Bilat axilla Skin Skin Narrative: faint diffuse blanching erythema on trunk Neuro CN's II-XII intact bilaterally Lab / Micro Data Result Diagrams: 06/23/21 05:49 06/23/21 05:49 Labs: Laboratory Results - last 24 hr 06/23/21 05:49: WBC 9.6, RBC 3.99 L, Hgb 11.6 L, Hct 35.4 L, MCV 88.7, MCH 29.1, MCHC 32.8, RDW Std Deviation 44.6 H, RDW Coeff of Arnold 13.8, Plt Count 436, MPV 10.2, Immature Gran % (Auto) 0.900, Neut % (Auto) 57.2, Lymph % (Auto) 34.2, [place] % (Auto) 5.9, Eos % (Auto) 1.4, Baso % (Auto) 0.4, Absolute Neuts (auto) 5.5, Absolute Lymphs (auto) 3.28, Nucleated RBC % 0, Differential Comment SCANNED 06/23/21 05:49: Sodium 135 L, Potassium 3.7, Chloride 97 L, Carbon Dioxide 29.0, Anion Gap 9, BUN 23 H, Creatinine 1.16, Estim Creat Clear Calc 73.42, Est GFR (MDRD) Af Amer 84, Est GFR (MDRD) Non-Af 69, BUN/Creatinine Ratio 19.8, Glucose 115 H, Calcium 8.3 L Radiology Impression Echocardiogram 06/21/21 21:05 Interpretation Summary The study was technically difficult. Left ventricular systolic function is normal. The estimated ejection fraction is 65 %. The global longitudinal strain = -12% (abnormal). D shaped septum in systole and diastole. Severe concentric left ventricular hypertrophy. Mildly dilated right ventricle. Mild global right ventricular systolic dysfunction. Based upon the 2D echocardiographic images obtained the RV free wall appears thickened. The left atrium is moderately enlarged. The right atrium is mildly enlarged. Anterior leaflet diffuse mitral valve thickening. Severe focal mitral valve calcification of the anterior leaflet. The mitral valve chordae are thickened and/or calcified. The mitral papillary muscle appears thickened. Moderate (2+) eccentric mitral valve insufficiency. Mild tricuspid valve insufficiency. Mild focal aortic valve thickening. Trivial pulmonic valve insufficiency. Right ventricular systolic pressure estimated to be 57 mmHg. There is evidence of diastolic dysfunction. Comment: The global longitudinal strain map suggests a bull's-eye type pattern potentially compatible with amyloidosis. Ordering Physician: Fabio Gallagher Referring Physician: ASHWIN PARADA Performed By: Dahiana Rodriguez, MICHAELCS, RVT
[2021-06-23 14:00] LABS: Hep C Antibodies <0.1 s/co ratio (0.0-0.9)
[2021-06-23] MEDS: Carvedilol 6.25 MG Tablet PO (22:17)
[2021-06-23] MEDS: Acetaminophen 325 MG Tablet 650 MG PO (22:17)
[2021-06-24 04:00] VITALS: BP 118/80; PULSE 78; RESP 18; TEMP 36.7; O2SAT 97
--- NOTE | 2021-06-24 05:55 | EKG12_ITS ---
Test Reason : ROUTINE Blood Pressure : / mmHG Vent. Rate : 091 BPM Atrial Rate : 091 BPM P-R Int : 264 ms QRS Dur : 128 ms QT Int : 396 ms P-R-T Axes : 000 -56 101 degrees QTc Int : 487 ms Sinus rhythm with 1st degree A-V block Left axis deviation Right bundle branch block T wave abnormality, consider lateral ischemia Abnormal ECG When compared with ECG of 21-JUN-2021 18:24, Sinus rhythm has replaced Atrial flutter Criteria for Inferior infarct are no longer Present Confirmed by WILL BORDEN, LILIANA ([id number]), map editor LUBNA COSME ([id number]) on 07/01/2021 2:04:25 PM Referred By: SHARON Confirmed By:ABRAM SOLIS MD
[2021-06-24 07:22] LABS: Absolute Lymphocyte Count 3.39 X10^3/uL (0.83-4.51); Absolute Neutrophil Count 4.5 X10^3/uL (2.0-7.7); Basophil# 0.04 X10^3/uL; Basophil% 0.5 % (0-1); Eosinophil# 0.17 X10^3/uL; Eosinophils% 1.9 % (0-5); Hematocrit 36.9 % (40-54); Hemoglobin 11.9 g/dL (13.0-16.5); Lymphocyte # 3.39 X10^3/ul (0.83-4.51); Lymphocyte % 38.7 % (19-41); Mean Corp Hgb Conc 32.2 g/dL (32-36); Mean Corpuscular Hgb 28.7 pg (27.0-32.0); Mean Corpuscular Volume 88.9 fL (80-94); Mean Platelet Vol. 10.2 fl (6.2-12.0); Monocyte# 0.59 X10^3/uL; Monocyte% 6.7 % (0-10); NRBC Flagged by Analyzer 0 % (0-5); Neutrophil # 4.48 X10^3/uL (2.7-7.7); Neutrophil % 51.3 % (47-70); Platelet Count 417 K/mm3 (150-450); RBC Distribution Width CV 14.3 % (11.6-14.6); RBC Distribution Width SD 45.9 fl (35.1-43.9); Red Blood Count 4.15 M/mm3 (4.6-6.2); White Blood Count 8.8 K/mm3 (4.4-11.0)
[2021-06-24 07:36] VITALS: PULSE 83
[2021-06-24 07:38] LABS: ALB/GLOB Ratio 0.6 RATIO (0.9-2.4); AST(SGOT) 274 U/L (15-37); Alanine Aminotransfer ALT/SGPT 282 U/L (16-61); Albumin, Serum 2.6 g/dL (3.2-5.0); Alkaline Phosphatase 73 U/L (45-117); Anion Gap 9 (5-15); BUN 27 mg/dL (7-18); BUN/Creat Ratio 23.5 RATIO (10-20); Calcium,Total 8.5 mg/dL (8.5-10.1); Chloride 99 mmol/L (98-107); Creatinine, Serum 1.15 mg/dL (0.70-1.30); EST Glomerular Filtration Rate 70 mL/min (>60); Est Glom Filt Rate - Afr Amer 84 mL/min (>60); Estimated Creatinine Clearance 74.06 ml/min; Globulin 4.2 g/dL (2.2-4.2); Glucose 107 mg/dL (74-106); Protein, Total 6.8 g/dL (6.4-8.2); Sodium Level 135 mmol/L (136-145)
--- NOTE | 2021-06-24 07:41 | PCM.PN.CARD ---
Subjective Subjective The patient states he is feeling better today. He believes overall his heart rate is better and his breathing is better as well as his peripheral pitting edema. He does note that when his temperature spike occurs he feels like he has pruritus in his hands and feet. Objective Data Vital Signs: Vital Signs Temp Pulse Resp BP Pulse Ox 98.0 F 78 18 118/80 97 06/24/21 04:00 06/24/21 04:00 06/24/21 04:00 06/24/21 04:00 06/24/21 04:00 Oxygen Flow Rate (L/min) 2 Oxygen Delivery Method Room Air Weight: 221 lb 12.56 oz Body Mass Index (BMI) 33.6 Intake & Output: Intake and Output for Last 24 Hours 06/22/21 06/23/21 06/24/21 23:59 23:59 23:59 Intake Total 671.50 / 681.50 1191.84 / 1191.84 Output Total 1400 / 1400 3100 / 3100 Balance -728.50 / -718.50 -1908.16 / -1908.16 Lab / Micro Data Result Diagrams: 06/24/21 06:43 06/24/21 06:43 Labs: Laboratory Results - last 24 hr 06/21/21 23:20: Hepatitis A IgM Ab Negative, Hep Bs Antigen Negative, Hep B Core IgM Ab Negative, Hepatitis C Ab (EIA) <0.1 06/23/21 14:52: SARS-CoV-2 IgG Ab 9.45 H 06/24/21 06:43: WBC 8.8, RBC 4.15 L, Hgb 11.9 L, Hct 36.9 L, MCV 88.9, MCH 28.7, MCHC 32.2, RDW Std Deviation 45.9 H, RDW Coeff of Arnold 14.3, Plt Count 417, MPV 10.2, Immature Gran % (Auto) 0.900, Neut % (Auto) 51.3, Lymph % (Auto) 38.7, [place] % (Auto) 6.7, Eos % (Auto) 1.9, Baso % (Auto) 0.5, Absolute Neuts (auto) 4.5, Absolute Lymphs (auto) 3.39, Nucleated RBC % 0 06/24/21 06:43: Sodium 135 L, Potassium 4.0, Chloride 99, Carbon Dioxide 27.0, Anion Gap 9, BUN 27 H, Creatinine 1.15, Estim Creat Clear Calc 74.06, Est GFR (MDRD) Af Amer 84, Est GFR (MDRD) Non-Af 70, BUN/Creatinine Ratio 23.5 H, Glucose 107 H, Calcium 8.5, Total Bilirubin 1.40 H, AST 274 H, ALT 282 H, Alkaline Phosphatase 73, Total Protein 6.8, Albumin 2.6 L, Globulin 4.2, Albumin/Globulin Ratio 0.6 L Cardiology Labs/Tests 06/24/21 06:43: WBC 8.8, RBC 4.15 L, Hgb 11.9 L, Hct 36.9 L, MCV 88.9, MCH 28.7, MCHC 32.2, Plt Count 417, MPV 10.2, Immature Gran % (Auto) 0.900, Neut % (Auto) 51.3, Lymph % (Auto) 38.7, [place] % (Auto) 6.7, Eos % (Auto) 1.9, Baso % (Auto) 0.5, Absolute Neuts (auto) 4.5, Nucleated RBC % 0 06/24/21 06:43: Sodium 135 L, Potassium 4.0, Chloride 99, Carbon Dioxide 27.0, Anion Gap 9, BUN 27 H, Creatinine 1.15, Est GFR (MDRD) Af Amer 84, Est GFR (MDRD) Non-Af 70, BUN/Creatinine Ratio 23.5 H, Glucose 107 H, Calcium 8.5, Total Bilirubin 1.40 H Rhythm: Episodes appearing compatible with sinus rhythm with prolonged SD interval and atrial fibrillation/flutter EKG: Atrial flutter; left axis deviation; right bundle branch block; inferior Whyte indeterminate age; compared to previous ECGs there does not appear to be any new acute electrocardiographic changes Physical Exam Const alert, oriented x3 and no apparent distress Orientation / Consciousness: awake HEENT normocephalic, head/scalp atraumatic and hearing grossly normal bilaterally Eyes PERRL, EOMs intact bilaterally and conjunctivae normal Neck full ROM, supple and no JVD Resp clear to auscultation bilaterally Auscultation: rhonchi Cardio Rate: regular rate Rhythm: abnormal rhythm irregularly irregular Heart Sounds: S1 normal, S2 normal, gallop S4 gallop, murmur systolic II/ harsh mid left sternal border and apex and other GI normal to inspection, nondistended, normoactive bowel sounds Extremity General Extremity: edema bilateral lower extremity Details: trace Skin Skin Narrative: Anterior and posterior thorax: Somewhat generally erythematous and blanching Neuro oriented x3, moves all extremities, no focal motor deficits and no sensory deficits noted Psych mental status grossly normal Assessment & Plan Assessment/Plan (1) New onset a-fib: PLAN: The patient does have findings compatible with atrial fibrillation/flutter. The etiology is unclear at this time. However, there are concerns as to whether this is related to his recent febrile illness as well as concerns of any underlying cardiovascular condition either related to his history of congenital heart disease status post repair or an underlying cardiomyopathy. It appears, based on the patient's cardiac rhythm strip and his twelve-lead ECG, that he has returned to sinus rhythm with a prolonged SD interval superimposed upon his underlying previous conduction system abnormality. He is also been noted to have return to the appearance of atrial flutter with variable ventricular response. His medications have been adjusted with conversion from IV diltiazem to oral beta-blockers. Overall his rate does appear to be coming under better control. He will also need to continue oral systemic anticoagulant therapy. Over time as his acute febrile illness hopefully dissipates and improves if his rhythm has not returned to sinus rhythm then he will need to be considered for future outpatient synchronized biphasic DC cardioversion. (2) Elevated troponin: PLAN: The patient has an elevated troponin I level. It has not significantly changed. There is concerned this may be a type II event related to his acute conditions with respect to his febrile illness and his atrial dysrhythmia. He does not present with classic signs/symptoms of an acute coronary syndrome nor does he have acute electrocardiographic changes. He has been evaluated with a transthoracic echocardiogram. It does not appear he has left ventricular regional wall motion abnormalities. Over time it would be reasonable to consider him for further evaluation of any underlying CAD with either a pharmacologic stress nuclear imaging study or a diagnostic cardiac catheterization-depending upon his clinical course, etc. The timing of these procedures may depend upon his overall acute febrile illness, etc. Thus they may, as long as he is stable, occur as an outpatient. (3) ASD (atrial septal defect), ostium primum: PLAN: The patient states he was diagnosed with an atrial septal defect-ostium primum. He underwent surgical correction by Dr. Avendaño in [place] at approximately the age of 5. According to medical records available for review it appears that he underwent surgery on 07-15-1971 with respect to an interatrial septal defect patch closure as well as a mitral valve repair. There was also a comment that a membrane was found in the left ventricular outflow tract that was excised. According to the records he underwent diagnostic cardiac catheterization in July 1968 showing an ostium primum type interatrial septal defect. Also, per the report, based upon the possibility of left ventricular outflow tract obstruction another cardiac catheterization was repeated in April 1979 with no evidence of outflow tract obstruction. 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 It underwent repair as well. He has been further assessed with a transthoracic echocardiogram as noted. (5) CHF (congestive heart failure): PLAN: The patient does have concerns of underlying CHF. Based upon his clinical history and objective studies including his transthoracic echocardiogram there are concerns as to whether or not he does have a form of an underlying cardiomyopathy. Based upon his echocardiogram there are concerns as to whether or not he may have an infiltrative type cardiomyopathy such as amyloidosis. Thus it may be reasonable to pursue additional noninvasive studies initially with respect to this concern. He does not appear to have all the classic findings for Jerson's endocarditis, sarcoidosis, hemochromatosis, Fabry disease, giant cell myocarditis, lymphocytic myocarditis, etc. Also, he does not appear to have perhaps the classic presentation of Lyme carditis which often involves conduction system disease as opposed to tachydysrhythmias. Status post his infectious disease consultation he did undergo coronavirus antibody studies. His IgG study was positive. The IgM study is pending. Thus there is been a concern as to whether or not his cardiac events are related to exposure to the COVID-19 virus. He will need to continue medical management for his symptomatic and objective findings compatible with underlying CHF. He may need further noninvasive evaluation such as cardiac MRI. He may need further invasive evaluation which may eventually include an endomyocardial biopsy. Procedures such as cardiac MRI and endomyocardial biopsy would need to be performed at a tertiary care center such as [facility]. (6) Febrile illness: PLAN: The etiology of his febrile illness is still uncertain. At the moment, per the infectious disease consultation, there are concerns that his overall febrile illness may be associated with exposure to COVID-19. Based upon his travels and potential concerns of tick bites it may be reasonable to evaluate him for Lyme disease as well. Kiana'raul Comments Of note, according to the medical records received a dated 04-21-1992 he was noted on examination to have a grade 2 systolic ejection murmur along the lower left sternal border. His electrocardiogram showed sinus arrhythmia/sinus pauses with first-degree AV block with a right bundle branch block and left atrial enlargement. An ultrasound examination of the heart was apparently performed which revealed no evidence of residual defect at the atrial level. There was mild mitral regurgitation present. Overall, from a cardiovascular standpoint, he will continue medical therapy. At the moment this will include agents such as beta-blockers, diuretics, afterload reducing agents, and anticoagulant agents. He will continue evaluation care of his acute febrile illness. Hopefully as that resolves he will proceed with outpatient cardiovascular follow-up with respect to his cardiac dysrhythmia as well as concerns of CHF/pulmonary edema. Over time this may include attempts at synchronized biphasic DC cardioversion as well as further evaluation of his coronary anatomy and/or physiology as noted above. Also, based upon concerns of his echocardiogram it would still be reasonable to consider the patient being evaluated at a tertiary care center for diagnosis such as amyloidosis with a cardiac MRI. He will also need to be monitored as to if his febrile illness is related to COVID-19 exposure and his cardiovascular symptoms and findings are related to such for hopefully resolution of this as he recovers from his febrile illness. The patient's case was discussed and reviewed at great length with the patient and his spouse. This note was generated using a voice recognition system and there may be incorrect words, spelling or punctuation that were not noted when reviewing the office note prior to saving. Procedure Criteria Type of Procedure Procedure Type: Elective Elective Risks - COVID COVID Risk Discussion: The surgeon/proceduralist and patient have discussed in detail the risk of exposure to and/or potential harm posed by the COVID-19 virus with having a surgery/procedure at this time versus the risk of delaying the surgery/procedure. It is not possible to know either the risk of delaying the surgery or procedure or chance of getting an infection with perfect accuracy, but a joint decision was made between the patient and the surgeon/proceduralist to proceed at this time with the scheduled surgery/procedure as indicated on the consent form.
[2021-06-24] MEDS: Carvedilol 6.25 MG Tablet PO (08:29)
[2021-06-24] MEDS: Potassium Chloride Oral Tablet 20 MEQ 40 MEQ PO (08:30)
[2021-06-24] MEDS: Furosemide 40 MG Tablet PO (08:30)
[2021-06-24] MEDS: Enoxaparin 120 MG/0.8 ML Syringe 110 MG SC (08:30)
[2021-06-24 08:41] VITALS: BP 124/76; PULSE 101; RESP 14; TEMP 36.7; O2SAT 96
[2021-06-24] MEDS: SACUBITRIL/VALSARTAN 24/26 MG TABLET 1 EACH PO (09:08)
[2021-06-24 14:40] VITALS: BP 113/74; PULSE 88; RESP 16; TEMP 37.1; O2SAT 95
--- NOTE | 2021-06-24 14:44 | PCM.DC ---
Discharge Instructions Diet Discharge Diet: Low fat / Low cholesterol and 2000 mg Sodium Diet Activity Discharge Activity: Return to Normal Activity Dressing / Incision Call your doctor if you observe: Fever of 101 or Higher, Shortness of breath, Dizziness, Fainting spells, Swelling in the ankles, Chest pain and Increased palpitations (irregular heartbeat) Follow Up Care Test Results: Test results from this visit will be discussed in further detail at your follow-up appointment, if applicable. Discharge Plan Admission Admit Date/Time: 06/21/21 19:51 Attending Provider: Rob Phoenix Primary Care Provider: Guillermo Lambert Consulting Providers: Mika Lora ; Mike Chan Discharge Orders/Prescriptions Prescriptions: New furosemide 40 mg Tablet 40 mg PO DAILY Qty: 30 RF: 0 carvedilol 12.5 mg Tablet 12.5 mg PO BID Qty: 60 RF: 0 Eliquis 5 mg Tablet 5 mg PO BID Qty: 60 RF: 0 Entresto 24-26 mg Tablet 1 ea PO BID Qty: 60 RF: 0 Referrals / Follow Up: Guillermo Lambert MD [Primary Care Provider] - Within 1 Week Disposition Disposition (needs filled in before D/C Order can be placed): Home, Self Care
--- NOTE | 2021-06-24 14:47 | PCM.DC.SUM ---
Providers Date of Admission: 06/21/21 Primary Care Physician: Dr. Guillermo Lambert MD Consultations 06/22/21 10:57 Consult: Cardiology Routine Consulting Provider: Mika Lora Reason for Consult: afib management EMERGENT Consult: No Notified: Yes Date Notified: 06/22/21 Time Notified: 10:57 Method of Notification: Text 06/23/21 10:12 Consult: Infectious Disease Routine Consulting Provider: Mike Chan Reason for Consult: Fever of unknown origin, mediatinal adenopathy, CHF, foreign travel, rash EMERGENT Consult: No Notified: Yes Date Notified: 06/23/21 Time Notified: 10:24 Method of Notification: Text Reason For Visit: NEWLY DIAGNOSED AFIB; CHF Diagnosis Discharge Diagnosis (1) New onset a-fib: Status: Acute Code(s): I48.91 - Unspecified atrial fibrillation (2) Elevated troponin: Status: Acute Code(s): R77.8 - Other specified abnormalities of plasma proteins (3) ASD (atrial septal defect), ostium primum: Status: Acute Code(s): Q21.2 - Atrioventricular septal defect (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: Status: Acute Code(s): Q23.9 - Congenital malformation of aortic and mitral valves, unspecified (5) CHF (congestive heart failure): Status: Acute Code(s): I50.9 - Heart failure, unspecified Medications at Discharge Home Medications apixaban [Eliquis] 5 mg PO BID #60 tab 06/24/21 carvedilol 12.5 mg PO BID #60 tab 06/24/21 furosemide 40 mg PO DAILY #30 tab 06/24/21 sacubitril-valsartan [Entresto] 1 ea PO BID #60 tab 06/24/21 Hospital Course Operations None Procedures 2-D Echocardiogram Summary of Care Provided Minutes Spent on Discharge: 45 Hospital Course: Per HPI: CHANI TREVIZO, is a 55 M with a significant history of congenital ASD status post repair and obesity who presents to emergency department with a 12-day history of a fever. Reportedly his fever has been waxing and waning. He was at a emergency department on June 15, 2021 where a Covid screen was done. He reported that during the course of his illness he has had 3 Covid test and all were negative. He reports home temperature as high as 103.7F. He has been taken Advil and Tylenol to control his fever. Associated with his symptoms is insomnia; dyspnea on exertion; orthopnea; paroxysmal nocturnal dyspnea and swelling of his lower extremities. He he also complains of muscle aches. He was having diarrhea but for the past 2 days (before presentation) his bowels has not moved. Patient was at the urgent care about a week ago and influenza A and B tested returned negative. His reported patient returned from [place] in February 2021. COVID-19 vaccination status: Patient has had 2 doses of Moderna. His booster dose was actually scheduled for this week. Hospital Course: 1. New onset A. fib with signs of acute diastolic heart failure/elevated troponin ?No previous history of heart failure or any cardiac disease. He did have a history of an ASD repair when he was a child ?[id number] is a 1-2 based on his newly diagnosed heart failure as well as the possible history of hypertension though he does not take any medications ?We will likely need Eliquis on discharge ?Echo demonstrated a strain pattern consistent with an infiltrative disease like amyloidosis. UA protein was normal and total body protein was also normal however will obtain a serum protein electrophoresis. EF was 65% with severe concentric left ventricular hypertrophy he had mild global right ventricular systolic dysfunction left atrium was enlarged right atrium was enlarged and then signs of his previous ASD. His RVSP was 57 mmHg ?Continue with Cardizem and start him on Coreg ?Given his international travel he has been tested for malaria, hepatitis, syphilis, HIV. His HIV, malaria, and syphilis test have all come back negative, hepatitis panel is pending. LFTs are little bit elevated but he denies any right upper quadrant abdominal pain ?Elevated troponins likely secondary to his A. fib 06/24/2021: Feels much better today, heart rate is controlled he does not take any normal meds at home however he will be discharged on Lasix 20 mg p.o. daily as well as Coreg 12.5 mg p.o. twice daily, Eliquis 5 mg p.o. daily as well as Entresto twice daily. I did explain to him that there were still working up exactly was been going on with him there is concerns for an infiltrative disease secondary to the findings on the echocardiogram as well as his mediastinal adenopathy. Amyloidosis is in the consideration and an electrophoresis is pending and can be followed up as an outpatient. His urine protein and total serum protein are negative which go against amyloidosis. He did have an IgG that was positive for COVID however I do not know how this level is judged in relation to his COVID-vaccine and an IgM level is pending. There is a possibility that this could be a viral myocarditis/cardiomyopathy however he does not have a reduced EF. Would recommend follow-up as an outpatient with cardiology. There may be a need for cardiac MRI at a tertiary care center as well at this coronary artery evaluation with heart cath has not. 2. Elevated LFTs/fever of unknown origin ?Unsure if this is related to the cause of his heart failure or if it is coincidental ?Malaria is negative hepatitis panel is pending ?We will trend LFTs ?We will check Lyme titers given his travel and his description of being bitten by several ticks ?CT of the chest was unremarkable except there was some mediastinal adenopathy but no signs of pneumonia ?His LFTs are still little bit elevated though trending down, will obtain an ultrasound of his liver and consult infectious disease. 06/24/2021: In regards to his fever of unknown origin as well as elevated LFTs, his AST and ALT remain elevated in the 200s. His total bilirubin is only slightly elevated at 1.4. Liver ultrasound was fairly unremarkable and just described a mild hepatomegaly. EBV and CMV titers are pending, hepatitis panels, malaria panel, syphilis panels, HIV were negative. Lyme disease is pending however unlikely and the IgM for COVID is also pending. Depending on what the final results are of all of these tests as well as electrophoresis he may benefit from outpatient infectious disease or rheumatologic work-up especially in the setting mediastinal lymphadenopathy. Physical Exam Narrative Const alert, oriented x3 and no apparent distress General Appearance: cooperative HEENT normocephalic and moist oral mucous membranes Eyes PERRL, EOMs intact bilaterally and conjunctivae normal Neck supple and no JVD Resp normal respiratory effort, no retractions and no use of accessory muscles Auscultation: diminished lung sounds; Negative for crackles, rales, rhonchi or wheezes Cardio regular rate, regular rhythm, S1 normal heart sound, S2 normal heart sound and no murmurs GI soft to palpation, non-tender and non-distended; Negative for hepatosplenomegaly Extremity General Extremity: edema; Negative for clubbing or cyanosis Skin Skin Narrative: Diffuse redness on his chest and upper abdomen, no clear signs of demarcation, its not pruritic. There is blanching but it is not raised and there is no papules Neuro no focal motor deficits and no sensory deficits noted Psych affect normal Appearance: appropriate Weight / BMI Weight Weight: 221 lb 12.56 oz Body Mass Index (BMI) 33.6 ABG / Lab / Microbiology Data Result Diagrams: 06/24/21 06:43 06/24/21 06:43 Laboratory: Laboratory Results - last 24 hr 06/23/21 14:52: SARS-CoV-2 IgG Ab 9.45 H 06/24/21 06:43: WBC 8.8, RBC 4.15 L, Hgb 11.9 L, Hct 36.9 L, MCV 88.9, MCH 28.7, MCHC 32.2, RDW Std Deviation 45.9 H, RDW Coeff of Arnold 14.3, Plt Count 417, MPV 10.2, Immature Gran % (Auto) 0.900, Neut % (Auto) 51.3, Lymph % (Auto) 38.7, [place] % (Auto) 6.7, Eos % (Auto) 1.9, Baso % (Auto) 0.5, Absolute Neuts (auto) 4.5, Absolute Lymphs (auto) 3.39, Nucleated RBC % 0 06/24/21 06:43: Sodium 135 L, Potassium 4.0, Chloride 99, Carbon Dioxide 27.0, Anion Gap 9, BUN 27 H, Creatinine 1.15, Estim Creat Clear Calc 74.06, Est GFR (MDRD) Af Amer 84, Est GFR (MDRD) Non-Af 70, BUN/Creatinine Ratio 23.5 H, Glucose 107 H, Calcium 8.5, Total Bilirubin 1.40 H, AST 274 H, ALT 282 H, Alkaline Phosphatase 73, Total Protein 6.8, Albumin 2.6 L, Globulin 4.2, Albumin/Globulin Ratio 0.6 L Microbiology: Microbiology 06/21/21 21:45 Mucosa - Nasopharyngeal Rapid RSV (DFA) - Final Radiography Diagnostic Testing: Radiology Impression Liver Ultrasound 06/23/21 10:13 IMPRESSION: Sludge is seen within the gallbladder lumen. Mild hepatomegaly. Small right pleural effusion. Electronically Signed: Brian Angeles MD at 8:06 EST , Service support , D/C Instructions Discharge Diet: Low fat / Low cholesterol and 2000 mg Sodium Diet Call your doctor if you observe: Fever of 101 or Higher, Shortness of breath, Dizziness, Fainting spells, Swelling in the ankles, Chest pain and Increased palpitations (irregular heartbeat) Meaningful Use Info Meaningful Use Diagnoses (Choose all that apply): None applicable Discharge Plan Admission Admit Date/Time: 06/21/21 19:51 Attending Provider: Rob Phoenix Primary Care Provider: Guillermo Lambert Consulting Providers: Mika Lora ; Mike Chan Discharge Orders/Prescriptions Prescriptions: New furosemide 40 mg Tablet 40 mg PO DAILY Qty: 30 RF: 0 carvedilol 12.5 mg Tablet 12.5 mg PO BID Qty: 60 RF: 0 Eliquis 5 mg Tablet 5 mg PO BID Qty: 60 RF: 0 Entresto 24-26 mg Tablet 1 ea PO BID Qty: 60 RF: 0 Referrals / Follow Up: Guillermo Lambert MD [Primary Care Provider] - Within 1 Week Mika Lora MD [STAFF PHYSICIAN] - Within 3 Months Disposition Disposition (needs filled in before D/C Order can be placed): Home, Self Care Charges/Coding Visit Charges Inpatient E&M: 37234 Disch Hosp
[2021-06-24 15:12] VITALS: PULSE 84
[2021-06-24 16:10] LABS: Alpha-1-Globulins 0.3 g/dL (0.0-0.4); Gamma Globulin 0.9 g/dL (0.4-1.8); Immunoglobulin A 210 mg/dL (90-386); Immunoglobulin G 918 mg/dL (603-1613); Immunoglobulin M 35 mg/dL (20-172)
--- NOTE | 2021-06-24 16:26 | CASEMGMT ---
Pt to be sent home on Entresto and Eliquis at discharge. [facility] for [facility] days. Meds to be re- sent to [facility] retail pharmacy instead as pt needs meds this evening. Entresto month free coupon and Eliquis 30 day free trial card to be applied in [facility] pharmacy and pt updated on all and provided with Eliquis co-pay card as well. Pt/family voice no further questions/concerns/needs. Geovanna BENSON CM
[2021-06-25 15:27] LABS: Lyme Scn Total Ab w/Rflx <0.91 ISR (0.00-0.90)
[2021-06-25 21:48] LABS: SAR-COV-2 IGM ANTIBODY Negative (Negative)
[2021-06-25 21:52] LABS: CMV Acute Antibody IgM < 30.0 AU/mL (0.0-29.9); CMV Antibody IgG < 0.60 U/mL (0.00-0.59); EBV Acute VCA IgM < 36.0 U/mL (0.0-35.9); EBV-VCA IgG 86.2 U/mL (0.0-17.9)
== END 2021-06-24 17:51 | disposition home or self-care (01) | DRG 308 ==
LOC: ED 18:34 → PCU 20:03
PROVIDERS: Internal Medicine Cardiovascular Disease; Internal Medicine Infectious Disease; Admitting Provider Hospitalist; Emergency Provider Emergency Medicine; PCP Family Medicine; Visit Provider Family Medicine
DX: I48.91 Unspecified atrial fibrillation (principal); I50.31 Acute diastolic (congestive) heart failure; Q21.2 Atrioventricular septal defect; E85.9 Amyloidosis, unspecified; Q23.9 Congenital malformation of aortic and mitral valves, unspecified; I11.0 Hypertensive heart disease with heart failure; R59.0 Localized enlarged lymph nodes; R50.9 Fever, unspecified; R94.5 Abnormal results of liver function studies; R21 Rash and other nonspecific skin eruption; E66.9 Obesity, unspecified; Z68.34 Body mass index [BMI] 34.0-34.9, adult; Z20.822 Contact with and (suspected) exposure to COVID-19; Z79.899 Other long term (current) drug therapy
CPT/HCPCS: 36415; 71045; 71275; 76705; 80048; 80053; 80061; 80074; 80076; 81001; 82784; 83735; 83880; 84165; 84443; 84484; 85025; 86334; 86618; 86644; 86645; 86664; 86665; 86703; 86769; 86780; 87207; 87807; 93005; 93306; 94760; 99283; Q9967; A4216; J1940

== ENCOUNTER 2021-08-30 09:17 | Outpatient (CLI) | payer OTHER, SELFPAY ==
[2021-08-30 10:44] LABS: Anion Gap 4 (5-15); BUN 27 mg/dL (7-18); BUN/Creat Ratio 23.3 RATIO (10-20); Calcium,Total 8.4 mg/dL (8.5-10.1); Chloride 107 mmol/L (98-107); Creatinine, Serum 1.16 mg/dL (0.70-1.30); EST Glomerular Filtration Rate 69 mL/min (>60); Est Glom Filt Rate - Afr Amer 84 mL/min (>60); Glucose 105 mg/dL (74-106); Sodium Level 140 mmol/L (136-145)
== END 2021-08-30 23:59 | disposition home or self-care (01) ==
LOC: LAB 09:19
PROVIDERS: PCP Family Medicine; Visit Provider Internal Medicine Cardiovascular Disease
DX: I50.9 Heart failure, unspecified (principal); Z51.81 Encounter for therapeutic drug level monitoring; Z79.899 Other long term (current) drug therapy
CPT/HCPCS: 36415; 80048

== ENCOUNTER 2021-09-08 06:47 | Outpatient (CLI) | payer OTHER, SELFPAY ==
--- NOTE | 2021-09-08 06:49 | ECHOD_ITS ---
Reason For Study: ARRHYTHMIA Procedure This was a 2D Doppler, Color Flow transthoracic echocardiogram. The study was technically difficult. Exam performed in department. Left Ventricle Normal LV size. Severe concentric left ventricular hypertrophy. D shaped septum in systole and diastole. Left ventricular systolic function is normal. The estimated ejection fraction is 60 %. There is evidence of diastolic dysfunction. No regional wall motion abnormalities noted. Right Ventricle Mildly dilated right ventricle. Mild global right ventricular systolic dysfunction. Atria The left atrium is moderately enlarged. The right atrium is mildly enlarged. No doppler evidence for ASD. Mitral Valve There is no mitral annular calcification. Severe focal mitral valve calcification of the anterior leaflet. The papillary muscle appears thickened. Moderate (2+) eccentric mitral valve insufficiency. Tricuspid Valve Normal tricuspid valve. Mild (1+) tricuspid valve insufficiency. Right ventricular systolic pressure estimated to be 43 mmHg. Aortic Valve Trisinus/trileaflet aortic valve. Normal aortic valve. Pulmonic Valve The pulmonic valve is not well visualized. Mild (1+) pulmonic valve insufficiency. Great Vessels Mildly dilated aortic root. Pericardium/Pleural No pericardial effusion. MMode/2D Measurements & Calculations LVIDd: 4.3 cm IVSd: 1.6 cm Ao root diam: 4.2 cm LVIDs: 3.0 cm LVPWd: 1.4 cm RVDd: 3.4 cm FS: 31.0 % LAV(MOD-bp): 83.4 ml LA A4 area: 23.7 cm2 LA dimension(2D): 4.7 cm LAV(MOD-bp) Indexed: 38.2 ml/m2 LAV(MOD-sp2): 90.3 ml LAV(MOD-sp4): 72.3 ml RA A4 area: 23.9 cm2 Doppler Measurements & Calculations MV E max olaf: 192.2 cm/sec Lat Peak E' Olaf: 10.7 cm/sec Med Peak E' Olaf: 7.9 cm/sec E/E' lat: 17.9 E/E' med: 24.2 MV V2 max: 228.9 cm/sec Ao V2 max: 142.4 cm/sec AI max olaf: 249.6 cm/sec MV max P.1 mmHg Ao max P.1 mmHg AI max P.9 mmHg MV V2 mean: 123.6 cm/sec AI dec slope: 166.0 cm/sec2 MV mean P.1 mmHg AI P1/2t: 440.3 msec MV V2 VTI: 56.8 cm LV V1 max: 107.3 cm/sec MR max olaf: 495.9 cm/sec PA V2 max: 72.6 cm/sec LV V1 max P.6 mmHg MR max P.4 mmHg MR mean olaf: 412.2 cm/sec MR mean P.7 mmHg MR VTI: 169.0 cm PI end-d olaf: 121.0 cm/sec TR max olaf: 316.5 cm/sec TR max P.1 mmHg ECHO/Echo Complete Interpretation Summary The study was technically difficult. Left ventricular systolic function is normal. The estimated ejection fraction is 60 %. Severe concentric left ventricular hypertrophy. D shaped septum in systole and diastole. Mildly dilated right ventricle. Mild global right ventricular systolic dysfunction. The left atrium is moderately enlarged. The right atrium is mildly enlarged. Severe focal mitral valve calcification of the anterior leaflet. The papillary muscle appears thickened. Moderate (2+) eccentric mitral valve insufficiency. Mild (1+) tricuspid valve insufficiency. Mild (1+) pulmonic valve insufficiency. Mildly dilated aortic root. Right ventricular systolic pressure estimated to be 43 mmHg. There is evidence of diastolic dysfunction. Ordering Physician: Mika Lora Referring Physician: Guillermo Lambert Performed By: Denise Gill, LILIANA, RVT
== END 2021-09-08 23:59 | disposition home or self-care (01) ==
LOC: CVS 06:47
PROVIDERS: PCP Family Medicine; Referring Provider Internal Medicine Cardiovascular Disease; Visit Provider Internal Medicine Cardiovascular Disease
DX: Q21.2 Atrioventricular septal defect (principal); I50.9 Heart failure, unspecified; I48.91 Unspecified atrial fibrillation; Q23.8 Other congenital malformations of aortic and mitral valves
CPT/HCPCS: 78452; 93017; 93225; 93226; 93306; A9500; A4216

== ENCOUNTER 2021-09-28 10:23 | Day surgery (SDC) | payer OTHER, SELFPAY ==
[2021-09-27 10:36] VITALS: BMI 32.8
--- NOTE | 2021-09-28 07:11 | HP.PCM_ITS ---
History and Physical Date of Admission: 09/28/21 [facility] 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 He does monitor his heart rate with his Fitbit/wristwatch device. He notes that his heart rates were higher initially. After his medicines were adjusted with the addition of diltiazem therapy to his beta-madi therapy his heart rates have begun to come down. He states overall they appear to be trending in the right direction. He did have a visit with his PCP and had laboratory studies performed. Based upon the PCP note it stated a urine and serum protein electrophoresis was performed and the results were thought to be negative and not supportive of a diagnosis of amyloidosis which was raised as a potential concern based upon his echocardiographic findings while at [facility]. Based upon review of his laboratory studies it appears his total cholesterol was 202 with an LDL of 134 and an HDL of 29 and a triglyceride level of 139. His AST was reported normal at 23, and ALT reported elevated at 67, and an alkaline phosphatase reported normal at 61. A previous AST was elevated at 128 and a previous ALT was elevated at 445. The BUN and creatinine were 19 and 1.18 with a potassium level of 4.3 (he states he was taking his diuretics when he had his laboratory studies performed). From a cardiac standpoint, the patient is doing well. He states that he can occasionally feel palpitations. He denies chest pain, pressure or heaviness. He does have SOB with exertion-this is nothing new or worsening. He denies Orthopnea, and PND. He does not have bleeding issues; no blood in urine, stool or nosebleeds. He does notice a decrease in energy level since June of this year. He denies myalgias, or claudication. He does have occasional lower extremity edema after being on his feet all day-this has improved. He denies sudden weight gain. He does not have dizziness, lightheadedness, syncopal or near syncopal episodes, and headaches. He would like to decrease his dose of Lasix. Intake Vital Signs 09/20/21 09:31 Height 5 ft 10 in Weight: 229 lb BMI 32.8 BP 127/78 H Blood Pressure Location Lt brachial Position Sitting Respiration 18 Pulse 62 Pulse Source Monitor Pulse Oximetry (%) 99 Intake Visit Reasons: UPDATE H&P DCCV Broker Assistant Required: No Accompanied by: no one Is patient in pain?: No Allergies grass pollen Allergy (Intermediate, Verified 09/20/21 09:46) u tree and shrub pollen Allergy (Intermediate, Verified 09/20/21 09:46) u Medications apixaban [Eliquis] 5 mg PO BID #60 tab 06/24/21 [Rx Confirmed 09/20/21] sacubitril-valsartan [Entresto] 1 ea PO BID #60 tab 06/24/21 [Rx Confirmed 09/20/21] diltiazem HCl 120 mg capsule,extended release 24 hr 120 mg PO BID #60 cap 07/12/21 [Rx Confirmed 09/20/21] carvedilol 25 mg tablet 25 mg PO BID #180 tab 08/02/21 [Rx Confirmed 09/20/21] furosemide 40 mg tablet 20 mg PO DAILY tab 09/20/21 [History Confirmed 09/20/21] [facility] Medical History (Reviewed 09/20/21 @ 09:42 by Isadora Magallanes PLASTIC PANEL INSTALLER, PLASTIC PANEL INSTALLER-C) Abnormal cardiac enzyme level ASD (atrial septal defect) ASD (atrial septal defect), ostium primum CHF (congestive heart failure) Congenital cleft leaflet of mitral valve Liver enzyme elevation New onset a-fib Surgical History History of appendectomy Family History (Reviewed 09/20/21 @ 09:42 by Isadora Magallanes PLASTIC PANEL INSTALLER, PLASTIC PANEL INSTALLER-C) Father CAD (coronary artery disease) Diabetes Mother Atrial fibrillation Other Asthma Heart disease Social History Smoking Status: Never smoker alcohol intake: current alcohol intake frequency: a few times a week Alcohol type: wine substance use type: does not use caffeine: Yes Type: coffee Number of servings: 2 ROS Const Const: Positive for fatigue; Negative for weakness, fever(s), headache(s), chills, frequent falls, weight g ain or weight loss Eyes Eyes: Negative for blind spots, loss of peripheral vision, transient loss of vision, blurry vision, change in vision, double vision, floaters or tunnel vision ENT ENT: Negative for headache(s), dizziness, Nosebleed/epistaxis, balance problems or neck pain Cardio Chest Pain: No Palpitations: Yes (occasional palpitation) feels like its: fast Edema: Bilateral (occasional lower extremity-this has improved) Muscle aches with walking: None Resp Respiratory: Positive for SOB with activity (nothing new or worsening); Negative for SOB at rest or SOB orthopnea\SOB lying down GI GI: Negative nausea, vomiting, heartburn, bloating, vomiting blood/hematemesis, bright, red blood in stools or black,tarry stools Musc Musc: Negative for muscle aches/ myalgia, muscle weakness, joint pain or balance problems Neuro Neuro: Negative for dizziness, lightheadedness, near syncope, syncope, orthostatic symptoms, frequent falls, headache(s), weakness, blurry vision or double vision Joey Hematologic/Lymphatic: Negative for easy bleeding or easy bruising Endo Endo: Positive for fatigue Cardiology Exam Const Appearance: cooperative and no acute distress Orientation: alert and oriented x3 Head Head: normal to inspection Ears: hearing grossly normal bilaterally Nose: external nose normal Face and Sinus: face symmetric Eyes General: appearance normal, both eyes and all related structures Eyelids: eyelids normal Conjunctivae: conjunctivae normal Pupils: PERRL and pupil size EOM: EOM intact bilaterally Neck Neck: normal visual inspection Carotids: Negative bruit Chest Chest inspection: normal inspection of the chest and normal respiratory effort Auscultation: Bilateral: Clear to Auscultation Cardio Palpation: normal PMI Rate: regular rate Rhythm: irregularly irregular Heart sounds: S1 normal and S2 normal; Negative rub, gallop or murmur GI GI: normal to inspection and soft; Negative no hepatosplenomegaly Neuro General: patient alert, patient oriented x3 and CN's II-XI intact bilaterally Skin Skin: no rashes or lesions noted Extremities Pulses: Normal: Right Posterior Tibial Pulse, Left Posterior Tibial Pulse, Right Radial Pulse and Left Radial Pulse Lower Extremity Edema: None: Bilateral Psych Psychological: normal affect Supplemental Info Supplemental Information Echocardiogram: 06-21-2021 Interpretation Summary The study was technically difficult. Left ventricular systolic function is normal. The estimated ejection fraction is 65 %. The global longitudinal strain = -12% (abnormal). D shaped septum in systole and diastole. Severe concentric left ventricular hypertrophy. Mildly dilated right ventricle. Mild global right ventricular systolic dysfunction. Based upon the 2D echocardiographic images obtained the RV free wall appears thickened. The left atrium is moderately enlarged. The right atrium is mildly enlarged. Anterior leaflet diffuse mitral valve thickening. Severe focal mitral valve calcification of the anterior leaflet. The mitral valve chordae are thickened and/or calcified. The mitral papillary muscle appears thickened. Moderate (2+) eccentric mitral valve insufficiency. Mild tricuspid valve insufficiency. Mild focal aortic valve thickening. Trivial pulmonic valve insufficiency. Right ventricular systolic pressure estimated to be 57 mmHg. There is evidence of diastolic dysfunction. Comment: The global longitudinal strain map suggests a bull's-eye type pattern potentially compatible with amyloidosis. Echocardiogram 09/08/2021: The study was technically difficult. Left ventricular systolic function is normal. The estimated ejection fraction is 60 %. Severe concentric left ventricular hypertrophy. D shaped septum in systole and diastole. Mildly dilated right ventricle. Mild global right ventricular systolic dysfunction. The left atrium is moderately enlarged. The right atrium is mildly enlarged. Severe focal mitral valve calcification of the anterior leaflet. The papillary muscle appears thickened. Moderate (2+) eccentric mitral valve insufficiency. Mild (1+) tricuspid valve insufficiency. Mild (1+) pulmonic valve insufficiency. Mildly dilated aortic root. Right ventricular systolic pressure estimated to be 43 mmHg. There is evidence of diastolic dysfunction. Stress Test 09/08/2021: Procedure: Exercise tolerance test/imaging study Indications: Shortness of breath/dyspnea on exertion; status post ASD repair; abnormal cardiac enzymes; abnormal transthoracic echocardiogram Consent: Per the patient Procedure: The patient exercised on a Antonio protocol for 6-minute completing Stage II achieving a peak heart rate of 206 bpm (126% predicted maximal heart rate) with a peak blood pressure 170/78 mmHg and a peak MET capacity of 7 METs. The baseline ECG demonstrated atrial flutter; incomplete right bundle branch block. The peak exercise ECG demonstrated atrial fibrillation/flutter with rapid ventricular response with continued incomplete right bundle branch block. There were no cardiac dysrhythmias pretest, during exercise, or recovery. The functional capacity was considered average. There was no complaint of chest discomfort during exercise or recovery. The examination was discontinued secondary to dyspnea. Impression: 1. Technically adequate (percent predicted maximal heart rate greater than 85%) exercise tolerance test 2. Peak exercise ECG with atrial fibrillation/flutter with rapid ventricular response with continued incomplete right bundle branch block 3. There were no cardiac dysrhythmias pretest, during exercise, or recovery 4. Nuclear images pending Myocardial perfusion imaging study: Technique: The patient was injected with 12.0 mCi of technetium 99m Cardiolite and subsequently rest SPECT Cardiolite nuclear imaging was obtained in the horizontal long, vertical long, and short axis views. The patient exercised on a Antonio protocol for 6-minute completing Stage II achieving a peak heart rate of 206 bpm (126% predicted maximal heart rate) with a peak blood pressure 170/78 mmHg and a peak MET capacity of 7 METs The patient was injected with 35.7 mCi of technetium 99m Cardiolite and subsequently stress SPECT Cardiolite nuclear imaging was obtained in the horizontal long, vertical long, and short axis views. A gated Cardiolite study at peak stress was obtained. Interpretation: Rest and stress SPECT Cardiolite nuclear imaging status post realignment, normalization, and attenuation correction, demonstrates the appearance of relative uniform tracer uptake and myocardial perfusion appearing within normal limits. There is end systolic thickening and brightening. The gated Cardiolite study demonstrates myocardial thickening and inward wall motion. The reported LVEF is 68%. Impression: 1. Rest and stress SPECT Cardiolite nuclear imaging demonstrate myocardial perfusion changes appearing compatible with physiologic apical thinning with no myocardial perfusion changes considered diagnostic for associated stress-induced myocardial ischemia. 2. The gated Cardiolite study reports an LVEF of 68%. Labs: No Data to Display Diagnostics: Electrocardiogram Echocardiogram Stress Test NM Stress Test Pulmonary: No Data to Display Assessment and Plan Assessment and Plan (1) New onset a-fib: Status: Acute Orders: Orders: 12 Lead EKG performed by B[facility] Today Cardioversion 09/28/21 Cristian Magallanes PLASTIC PANEL INSTALLER, PLASTIC PANEL INSTALLER-C: Patient has a history of atrial fibrillation. His EKG from today demonstrated atrial flutter, heart rate 62. His most recent 24 hour Holter monitor demonstrated atrial flutter. His heart rate is well controlled at this time. He will continue Eliquis 5mg twice daily, and carvedilol 25mg twice daily. He will be scheduled for a cardioversion on 09/28/2021. Cardioversion instructions given to patient. (2) CHF (congestive heart failure): Status: Acute Cristian Magallanes NP, PLASTIC PANEL INSTALLER-C: Patient has a history of congestive heart failure. His most recent echocardiogram from 09/08/2021 demonstrated normal left ventricular systolic function, an estimated ejection fraction of 60 %, and severe concentric left ventricular hypertrophy. He appears stable at this time, and denies any recent symptoms or events. He would like to decrease his Lasix therapy to once a day. He will continue Lasix 20mg daily and Entresto 24-26mg twice daily. He will continue to monitor for any concerning symptoms of congestive heart failure. (3) Congenital cleft leaflet of mitral valve: Status: Acute Cristian Magallanes PLASTIC PANEL INSTALLER, PLASTIC PANEL INSTALLER-C: Patient has a history of congenital cleft leaflet of mitral valve. His most recent echocardiogram from 09/08/2021 demonstrated severe focal mitral valve calcification of the anterior leaflet, the papillary muscle appears thickened, and moderate (2+) eccentric mitral valve insufficiency. We will continue to monitor this with history, exam, and echocardiograms as deemed appropriate. (4) ASD (atrial septal defect), ostium primum: Status: Acute Comment: Repaired in [place] Dr. Avendaño @ age 5 Cristian Magallanes NP, PLASTIC PANEL INSTALLER-C: Patient has a history of atrial septal defect. This was surgically repaired at the age of 5. His most recent echocardiogram from 09/08/2021 demonstrated a D shaped septum in systole and diastole. We will continue to monitor this with history, exam, and echocardiograms. Plan Details Other Medications: Changed: From: furosemide 20 mg PO BID To: furosemide 20 mg PO DAILY Additional Comments: Patient will follow up in 2 months, or sooner if needed. Thank you for allowing me to participate in the care of your patient. Please don't hesitate to call if any issues arise. This note was generated using a voice recognition system and there may be incorrect words, spelling, or punctuation that were not noted when reviewing the office note prior to saving. Follow Up: 1 week Post cardioversion EKG (10/06/21) Keeps as is (PFM) COVID (Procedure Consent) Procedure Criteria Procedure Criteria: Yes Elective The surgeon/proceduralist and patient have discussed in detail the risk of exposure to and/or potential harm posed by the COVID-19 virus with having a surgery/procedure at this time versus the risk of delaying the surgery/procedure. It is not possible to know either the risk of delaying the surgery or procedure or chance of getting an infection with perfect accuracy, but a joint decision was made between the patient and the surgeon/proceduralist to proceed at this time with the scheduled surgery/procedure as indicated on the consent form. Coding Level of Care Code Off vis,est,level 3 Diagnoses New onset a-fib I48.91 CHF (congestive heart failure) I50.9 Congenital cleft leaflet of mitral valve Q23.9 ASD (atrial septal defect), ostium primum Q21.2 Coding Level of Care Code Off vis,est,level 3 Diagnoses New onset a-fib I48.91 CHF (congestive heart failure) I50.9 Congenital cleft leaflet of mitral valve Q23.9 ASD (atrial septal defect), ostium primum Q21.2 09/20/212106<Electronically signed by Isadora Magallanes PLASTIC PANEL INSTALLER PLASTIC PANEL INSTALLER-C>Date Isadora Magallanes NP PLASTIC PANEL INSTALLER-C 09/21/21 [id number]<Electronically signed by Mika Lora MD>Cosigner Signature:Date (if applicable)Mika Lora MD CC: Dr. Guillermo Lambert MD ~ Assessment & Plan Addt'l Comments I have re-examined the patient. There are no clinical changes since date of exam
--- NOTE | 2021-09-28 13:18 | PCM.OP.PRO ---
Assessment & Plan Assessment/Plan (1) New onset a-fib: (2) CHF (congestive heart failure): Procedure Report Date of Procedure: 09/28/21 CONSCIOUS SEDATION REPORT BRIEF HISTORY OF PRESENT ILLNESS: The patient is a 56-year-old male who presented to [facility] for an elective outpatient cardioversion due to underlying atrial fibrillation. The patient reports no PO intake since midnight, but is currently therapeutic on anticoagulation. The patient does not have a history of BUDDY. The patient reports no history of smoking and COPD. The patient denies any recent constitutional symptoms such as fevers, chills, nausea or vomiting. The patient denies previous applicable anesthetic complications. Patient's last ejection fraction was noted to be 60%. Patient did take his Eliquis on the day of the procedure. PHYSICAL EXAMINATION: VITAL SIGNS: Reviewed and were acceptable. GENERAL: The patient is a male, in no apparent distress, speaking in full sentences. HEENT: Normocephalic, atraumatic. Mucous membranes are moist and pink. Good mouth opening noted. Trachea is midline. Good neck mobility. MP II CHEST: S1, S2 irregularly irregular. No murmurs, rubs or gallops were noted. LUNGS: Clear to auscultation bilaterally without appreciable wheezes, rales or rhonchi. ABDOMEN: Soft, nontender, nondistended. Positive bowel sounds. EXTREMITIES: There is no clubbing, cyanosis or edema. ASA Class: II DESCRIPTION OF PROCEDURE: After confirmation of informed consent, the patient's anesthesia plan was reviewed in detail. Propofol was chosen. Risks and benefits were reviewed and the patient agreed to proceed. At 12:18 PM, the patient was given 40 mg of propofol. The patient required a total of 80 mg of propofol throughout the procedure to achieve appropriate sedation. The patient achieved an appropriate level of sedation and received 1 attempt synchronized cardioversion, at [address] Lora at the bedside. The patient was initially noted to have a 6-second pause. However, this was successful in achieving normal sinus rhythm without acute intervention. The patient was monitored until 12:31 PM, at which time the patient reached their baseline mental status and function. The patient tolerated the procedure well. COMPLICATIONS: None ESTIMATED BLOOD LOSS: None RECOMMENDATIONS: Okay to recover in usual fashion. Procedures Pulmonary 9xxxx: [id number] Con Sedation
--- NOTE | 2021-09-28 13:34 | CARDIOVERS ---
Cardioversion Cardioversion: Date: 09-29-2019 Procedure: Synchronized Biphasic DC Cardioversion Indications: Atrial flutter Consent: Per the Patient Anesthesia: per Dr. Yang of pulmonology and critical care medicine with propofol 80 mg IV push total Procedure: Synchronized Biphasic DC Cardioversion: 50 J x 1: Result: Sinus pause (approximately 6 seconds) followed by sinus rhythm/sinus bradycardia Complications: no apparent complications This note was generated with [employer] dictation software. It may contain incorrect words, spelling, and punctuation that were not noted in checking the note before signing.
== END 2021-09-28 23:59 | disposition home or self-care (01) ==
LOC: CLSP 10:26
PROVIDERS: PCP Family Medicine; Referring Provider Internal Medicine Cardiovascular Disease; Visit Provider Internal Medicine Cardiovascular Disease
DX: I48.91 Unspecified atrial fibrillation (principal); I50.9 Heart failure, unspecified; Q23.9 Congenital malformation of aortic and mitral valves, unspecified; Q21.2 Atrioventricular septal defect; Z79.01 Long term (current) use of anticoagulants; Z79.899 Other long term (current) drug therapy; Z82.49 Family history of ischemic heart disease and other diseases of the circulatory system
CPT/HCPCS: 92960; 93005; J7040

== ENCOUNTER → 2021-10-25 | Outpatient (CLI) | payer OTHER, SELFPAY | END | disposition home or self-care (01) | PROVIDERS: PCP Family Medicine; Visit Provider Internal Medicine Cardiovascular Disease | DX: R00.1 Bradycardia, unspecified (principal) | CPT/HCPCS: 93225; 93226 ==

== ENCOUNTER → 2021-12-07 | Day surgery (SDC) | payer OTHER, SELFPAY ==
[2021-12-03 08:18] LABS: Anion Gap 5 (5-15); BUN 31 mg/dL (7-18); BUN/Creat Ratio 28.7 RATIO (10-20); Calcium,Total 8.7 mg/dL (8.5-10.1); Chloride 110 mmol/L (98-107); Creatinine, Serum 1.08 mg/dL (0.70-1.30); EST Glomerular Filtration Rate 75 mL/min (>60); Est Glom Filt Rate - Afr Amer 91 mL/min (>60); Glucose 111 mg/dL (74-106); Sodium Level 140 mmol/L (136-145)
[2021-12-03 12:33] VITALS: BMI 33.1
--- NOTE | 2021-12-06 11:25 | PCM.HP.BLA ---
History and Physical Date of Admission: 12/07/21 [facility] [address] [place], [place] [address] OFFICE VISIT Date of Service:? 11/04/21 MR#: [id number] Acct: [id number] Name:CHANI LOPEZ Rep #: [id number] : 1965 Provider: Dr. Mika Lora MD Age/Sex:? 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 You recall, based upon his original cardiovascular consultation, there was a concern as to whether or not there may be any diagnosis of amyloid present which would be contributing to his findings.? He subsequently had additional evaluation for such with basic laboratory studies with his PCP. Based upon the PCP note it stated a urine and serum protein electrophoresis was performed and the results were thought to be negative and not supportive of a diagnosis of amyloidosis which was raised as a potential concern based upon his echocardiographic findings while at [facility]. He continued medical therapy.? Overall he had gradual improvement in his symptoms.? He subsequently underwent evaluation and care of his atrial dysrhythmia, once he was on adequate anticoagulation therapy, with a synchronized biphasic DC cardioversion.? He was noted with the cardioversion to have a 6-second pause prior to regaining sinus rhythm.? He then had subsequent outpatient follow-up with a 24-hour Holter monitor performed on 10-25-2021.? He was noted to be in sinus rhythm at the time with a minimal heart rate of 31 bpm, and average heart rate of approximately 65 bpm, and a maximal heart rate approximately 112 bpm.? He did have evidence of a first-degree AV block.? He had PACs and PVCs. Based upon review of his Holter monitor he was asked to decrease his beta-madi dose.? He had already been without his calcium channel antagonist medication therapy. He states he had done well until just recently.? Recently he noted that his cardiac rhythm changed again and he was back into an atrial fibrillation and/or flutter.? He increased the dose of his beta-madi and restarted his calcium channel antagonist/diltiazem.? He states he does seem to respond better in some ways to his calcium channel antagonist with respect to his rate control. He demonstrates on his smart phone that his cardiac rate does vary.? His maximal rate is not going much above 100 bpm and is minimal rate can go down into the 40 to 50 bpm range at night.? He states he just does not tolerate his atrial rhythm well especially at higher rates.? He becomes more short of breath and dyspneic. He has undergone noninvasive studies.? This is included transthoracic echocardiogram and exercise tolerance test/imaging studies.? The results are noted below. He had an ECG in the office today..? He was in an underlying atypical atrial flutter with a ventricular rate of approximately 70 bpm.? He does have what appears to be an underlying left axis deviation, and incomplete right bundle branch block pattern, and a possible left anterior fascicular block pattern. He states otherwise he is not having any symptoms compatible with angina pectoris.? There is been no evidence of acute CHF or pulmonary edema.? There is been no near-syncope or syncope. Intake Vital Signs ? 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 cap 11/01/21 [History Confirmed 11/04/21] PFSH Medical History?(Updated 11/04/21 @ 16:[address] Mika Lora MD) Abnormal cardiac enzyme level ASD (atrial septal defect) ASD (atrial septal defect), ostium primum Atrial fibrillation and flutter CHF (congestive heart failure) Congenital cleft leaflet of mitral valve Liver enzyme elevation New onset a-fib Sinus bradycardia Surgical History? History of appendectomy History of cardioversion (~09/28/21) Family History? Father?? CAD (coronary artery disease) DiabetesMother Atrial fibrillationOther Asthma Heart disease Social History? Smoking Status:? Never smoker alcohol intake:? current alcohol intake frequency: a few times a week Alcohol type: wine substance use type:? does not use caffeine:? Yes Type: coffee Number of servings: 2 ROS Const Const: Positive for fatigue (increased); Negative for weakness, frequent falls, excessive sweating, weight gain or weight loss Eyes Eyes: Negative for transient loss of vision, blurry vision or change in vision ENT ENT: Negative for dizziness or balance problems Cardio Chest Pain: No Palpitations: Yes feels like its: fast Edema: None Muscle aches with walking: None Resp Respiratory: Positive for SOB with activity; Negative for SOB at rest GI GI: Negative vomiting or vomiting blood/hematemesis : Negative for hematuria Musc Musc: Negative for muscle aches/ myalgia, muscle weakness, joint pain or balance problems Skin Skin: Negative non-healing lesions or rash Neuro Neuro: Positive for lightheadedness (on Monday when went into afib); Negative for dizziness, orthostatic symptoms, frequent falls, weakness or blurry vision Joey Hematologic/Lymphatic: Negative for easy bleeding Endo Endo: Positive for fatigue (increased); Negative for excessive sweating Psych Psych: Negative for anxiety or depression Allergy Allergy/Immunology: Negative for hives and Negative for rash Cardiology Exam Const Appearance: cooperative, healthy appearing, comfortable, no acute distress, well developed and well groomed Nutritional Appearance: obese Orientation: alert, awake and oriented x3 Head Head: normal to inspection, normocephalic and atraumatic Ears: hearing grossly normal bilaterally Nose: external nose normal Face and Sinus: face symmetric Eyes Eyelids: eyelids normal Conjunctivae: conjunctivae normal Pupils: PERRL and pupil size EOM: EOM intact bilaterally Neck Neck: normal visual inspection and full ROM Carotids: normal carotid upstroke; Negative bruit Chest Chest inspection: normal inspection of the chest, symmetric chest movement and normal respiratory effort Auscultation: Bilateral: Clear to Auscultation Cardio Palpation: normal PMI Rate: regular rate Rhythm: irregularly irregular Heart sounds: S1 normal and S2 normal GI GI: normal to inspection, soft, bowel sounds present and obese Neuro General: patient alert, patient awake, patient oriented x3 and moves all extremities Skin Skin: no rashes or lesions noted Extremities Pulses: Normal: Right Posterior Tibial Pulse, Left Posterior Tibial Pulse, Right Radial Pulse and Left Radial Pulse Lower Extremity Edema: None: Bilateral Psych Psychological: normal affect Supplemental Info Supplemental Information Echocardiogram: 06-21-2021 Interpretation Summary The study was technically difficult. ? Left ventricular systolic function is normal. The estimated ejection fraction is 65 %. The global longitudinal strain = -12% (abnormal). D shaped septum in systole and diastole. Severe concentric left ventricular hypertrophy. Mildly dilated right ventricle. Mild global right ventricular systolic dysfunction. Based upon the 2D echocardiographic images obtained the RV free wall appears thickened. The left atrium is moderately enlarged. The right atrium is mildly enlarged. Anterior leaflet diffuse mitral valve thickening. Severe focal mitral valve calcification of the anterior leaflet. The mitral valve chordae are thickened and/or calcified. The mitral papillary muscle appears thickened. Moderate (2+) eccentric mitral valve insufficiency. Mild tricuspid valve insufficiency. Mild focal aortic valve thickening. Trivial pulmonic valve insufficiency. Right ventricular systolic pressure estimated to be 57 mmHg. There is evidence of diastolic dysfunction. Comment: The global longitudinal strain map suggests a bull's-eye type pattern potentially compatible with amyloidosis. Echocardiogram 09/08/2021: The study was technically difficult. ? Left ventricular systolic function is normal. The estimated ejection fraction is 60 %. Severe concentric left ventricular hypertrophy. D shaped septum in systole and diastole. Mildly dilated right ventricle. Mild global right ventricular systolic dysfunction. The left atrium is moderately enlarged. The right atrium is mildly enlarged. Severe focal mitral valve calcification of the anterior leaflet. The papillary muscle appears thickened. Moderate (2+) eccentric mitral valve insufficiency. Mild (1+) tricuspid valve insufficiency. Mild (1+) pulmonic valve insufficiency. Mildly dilated aortic root. Right ventricular systolic pressure estimated to be 43 mmHg. There is evidence of diastolic dysfunction. Stress Test 09/08/2021: Procedure: Exercise tolerance test/imaging study Indications: Shortness of breath/dyspnea on exertion; status post ASD repair; abnormal cardiac enzymes; abnormal transthoracic echocardiogram Consent: Per the patient Procedure: The patient exercised on a Antonio protocol for 6-minute completing Stage II achieving a peak heart rate of 206 bpm (126% predicted maximal heart rate) with a peak blood pressure 170/78 mmHg and a peak MET capacity of 7 METs. The baseline ECG demonstrated atrial flutter; incomplete right bundle branch block.? The peak exercise ECG demonstrated atrial fibrillation/flutter with rapid ventricular response with continued incomplete right bundle branch block. There were no cardiac dysrhythmias pretest, during exercise, or recovery. The functional capacity was considered average. There was no complaint of chest discomfort during exercise or recovery. The examination was discontinued secondary to dyspnea. Impression: 1.? Technically adequate (percent predicted maximal heart rate greater than 85%) exercise tolerance test 2.? Peak exercise ECG with atrial fibrillation/flutter with rapid ventricular response with continued incomplete right bundle branch block 3.? There were no cardiac dysrhythmias pretest, during exercise, or recovery 4.? Nuclear images pending Myocardial perfusion imaging study: Technique: The patient was injected with 12.0 mCi of technetium 99m Cardiolite and subsequently rest SPECT Cardiolite nuclear imaging was obtained in the horizontal long, vertical long, and short axis views. The patient exercised on a Antonio protocol for 6-minute completing Stage II achieving a peak heart rate of 206 bpm (126% predicted maximal heart rate) with a peak blood pressure 170/78 mmHg and a peak MET capacity of 7 METs The patient was injected with 35.7 mCi of technetium 99m Cardiolite and subsequently stress SPECT Cardiolite nuclear imaging was obtained in the horizontal long, vertical long, and short axis views.? A gated Cardiolite study at peak stress was obtained. Interpretation: Rest and stress SPECT Cardiolite nuclear imaging status post realignment, normalization, and attenuation correction, demonstrates the appearance of relative uniform tracer uptake and myocardial perfusion appearing within normal limits.? There is end systolic thickening and brightening.? The gated Cardiolite study demonstrates myocardial thickening and inward wall motion.? The reported LVEF is 68%. Impression: 1.? Rest and stress SPECT Cardiolite nuclear imaging demonstrate myocardial perfusion changes appearing compatible with physiologic apical thinning with no myocardial perfusion changes considered diagnostic for associated stress-induced myocardial ischemia. 2.? The gated Cardiolite study reports an LVEF of 68%. Labs: ?? ? LDL Cholesterol 47 mg/dL (0-130) ?? ? HDL Cholesterol 16 mg/dL (40-) L ?? ? Triglycerides 228 mg/dL (-199) H ?? ? VLDL Cholesterol 46 mg/dL (5-40)? H Diagnostics: ?? ? Electrocardiogram ? Echocardiogram ? Stress Test NM ? Stress Test ? Chest X-Ray ? Pulmonary: ?? ? No Data to Display Assessment and Plan Assessment and Plan (1) Atrial fibrillation and flutter: ?Status:?Acute ? ? ? Orders:?Orders: ? 12 Lead EKG performed by [facility] Today ?Plan - Dr. Mika Lora MD: He has returned to his atrial fibrillation/flutter. At the present time his rate appears to be reasonably well controlled on his current combination medical therapy.? He is also on anticoagulant therapy. Based upon concerns of what appears to be a combination of conduction system disease as well as his atrial dysrhythmias superimposed upon his remote history of ASD status postrepair he is being referred to Dr. Howard of electrophysiology at [facility] for further evaluation. He may need an electrophysiology study to evaluate his conduction system with respect to his SA node, AV node, HV intervals, etc. and whether or not that requires additional evaluation/support as well as whether or not he is a candidate for an RFA of his atrial flutter/fibrillation. He states he does remember being told at a young age after he had his ASD repair and anterior mitral valve leaflet cleft repair that the day may come that he may require permanent pacemaker support. (2) Sinus bradycardia: ?Status:?Acute ?Plan - Dr. Mika Lora MD: He was noted to have evidence of marked sinus bradycardia when he was in sinus rhythm. Thus this raise concern about the possibility of underlying conduction system disease as well as noting an atrial flutter his flutter rate appears to be well controlled on his current combination medication as opposed to being tachycardic. Again it was felt this is a reason for him to be evaluated by electrophysiology. (3) CHF (congestive heart failure): ?Status:?Acute ?Plan - Dr. Mika Lora MD: He does not appear to have any ongoing issues of acute CHF or pulmonary edema at this time. He will monitor for any concerns. (4) ASD (atrial septal defect), ostium primum: ?Status:?Acute ?Comment: Repaired in [place] Dr. Avendaño @ age 5 ?Plan - Dr. Mika Lora MD: He has undergone previous ASD repair as noted. Again it raises a question as to whether or not his history of ASD is playing a role in what appears to be his underlying conduction system abnormalities and his atrial dysrhythmias. Plan Details Additional Comments: The above was discussed with him.? He was agreeable to this approach. This information is being forwarded to Dr. Howard at [facility] for his evaluation. Thank you for allowing me to participate in the care of your patient.? Please don't hesitate to call if any issues arise. This note was generated using a voice recognition system and there may be incorrect words, spelling or punctuation that were not noted when reviewing the office note prior to saving. Follow Up: ? ? 3 Months?(with PFM ) COVID (Procedure Consent) Procedure Criteria Procedure Criteria: Yes Elective?The surgeon/proceduralist and patient have discussed in detail the risk of exposure to and/or potential harm posed by the COVID-19 virus with having a surgery/procedure at this time versus the risk of? delaying the surgery/procedure. It is not possible to know either the risk of delaying the surgery or procedure or chance of getting an infection with perfect accuracy, but a joint decision was made between the patient and the surgeon/proceduralist ?to proceed at this time with the scheduled surgery/procedure as indicated on the consent form. Coding Level of Care Code Off vis,est,level 4 Diagnoses Atrial fibrillation and flutter? I48.91; I48.92 Sinus bradycardia? R00.1 CHF (congestive heart failure)? I50.9 ASD (atrial septal defect), ostium primum? Q21.2 Coding Level of Care Code Off vis,est,level 4 Diagnoses Atrial fibrillation and flutter? I48.91; I48.92 Sinus bradycardia? R00.1 CHF (congestive heart failure)? I50.9 ASD (atrial septal defect), ostium primum? Q21.2 11/04/21 [id number] <Electronically signed by Mika Lora MD> Date Mika Lora MD Cosigner Signature: Date (if applicable) CC:? Dr. Guillermo Lambert MD; Dr. Mike Howard MD ~ Assessment & Plan Addt'l Comments Addendum: The patient has been evaluated by Dr. Howard from [facility] electrophysiology. Status post review of the patient's case Dr. Howard recommended another attempt at synchronized biphasic DC cardioversion and attempt to regain sinus rhythm prior to proceeding with additional electrophysiology evaluation and care. The procedure and risk were discussed with him. He was agreeable to this approach. The patient presented for outpatient synchronized biphasic DC cardioversion. He was evaluated with ECG. His ECG demonstrated sinus bradycardia. Thus, the synchronized biphasic DC cardioversion was canceled. His case was discussed and reviewed with him. At the present time based upon his concerns of fatigue and his sinus bradycardia his medications were reviewed. He has been on carvedilol at 6.25 mg p.o. twice daily and diltiazem CD at 120 mg p.o. twice daily. He states overall he feels that his atrial dysrhythmia has responded better to the calcium channel antagonist than the beta-madi. Thus, at the present time, his beta-madi will be placed on hold. He will continue his diltiazem CD therapy. His information can be forwarded back to Dr. Howard at [facility] electrophysiology for additional evaluation and care. Above was discussed and reviewed with the patient with his spouse present. They were both agreeable to this approach. The patient was subsequently released for continued outpatient cardiovascular follow-up. This note was generated using a voice recognition system and there may be incorrect words, spelling or punctuation that were not noted when reviewing the office note prior to saving.
== END | disposition home or self-care (01) ==
LOC: CLSP 10:40
PROVIDERS: PCP Family Medicine; Referring Provider Internal Medicine Cardiovascular Disease; Visit Provider Internal Medicine Cardiovascular Disease
DX: I48.91 Unspecified atrial fibrillation (principal); I50.9 Heart failure, unspecified; I48.4 Atypical atrial flutter; Q21.2 Atrioventricular septal defect; R00.1 Bradycardia, unspecified; E66.9 Obesity, unspecified; Z68.33 Body mass index [BMI] 33.0-33.9, adult; Z79.01 Long term (current) use of anticoagulants
CPT/HCPCS: 36415; 80048; 93005

== ENCOUNTER → 2023-04-24 | Outpatient (CLI) | payer OTHER, SELFPAY ==
--- NOTE | 2023-04-24 10:21 | CR.HP_ITS ---
CR - History & Physical General Arrival date:: 04/24/23 Arrival time:: 10:21 Date of Referral:: 04/19/23 Date of CR Evaluation:: 04/24/23 Referring Physician: Dr. Samreen Gaspar Primary Diagnosis: S/P Mitral valve replacement 02/24/23 History of Present Cardiac Event Onset Date Heart valve replacement or repair:: Yes (02/24/23) Medications Ambulatory Orders Medication Instructions Recorded apixaban 5 mg tablet (Eliquis) 5 mg PO BID #60 tabs 06/24/21 sacubitril 24 mg-valsartan 26 mg 1 ea PO BID #60 tabs 06/24/21 tablet (Entresto) diltiazem HCl 120 mg capsule,24 120 mg PO BID 11/01/21 hr,extended release carvedilol 3.125 mg tablet 3.125 mg PO BID this is a dose 12/09/21 decrease #60 tabs Allergies Allergies grass pollen Allergy (Intermediate, Verified 01/27/22 16:15) u tree and shrub pollen Allergy (Intermediate, Verified 01/27/22 16:15) u Sleep Disorder Evaluation Hx of Sleep Apnea: Yes Do you snore loudly (louder than talking or can be heard through closed doors)?: No Do you often feel tired/ fatigued/ sleepy during daytime?: No Has anyone observed you stop breathing during sleep?: No History of Hypertension (for STOP score): Yes STOP Results: Negative Advanced Directives Advanced Directives Power of General Activities Therapist: No Living Will: No Advance Directives Information Provided: No DNR Order?:: No Past Medical History Covid-19 Screening Physicial Symptoms Other Clinical Concerns Exposure Risk Pertinent Comorbidities Has a serious heart condition:: Yes Past Medical Illness Medical History Abnormal cardiac enzyme level ASD (atrial septal defect) ASD (atrial septal defect), ostium primum Atrial fibrillation and flutter CHF (congestive heart failure) Congenital cleft leaflet of mitral valve Liver enzyme elevation New onset a-fib Persistent atrial fibrillation Sinus bradycardia Past Surgical History Surgical History History of appendectomy History of cardioversion (~09/28/21) Family History Summary Family History Father CAD (coronary artery disease) Diabetes Mother Atrial fibrillation Other Asthma Heart disease Social History Smoking History Smoking Status: Never smoker Alcohol Use Alcohol Usage: Yes (wine with supper) Occupation Occupation (List type of work in comments):: Employed Hours worked per day:: 10 Returned to work on:: 05/16/23 Hobbies, Recreation, Social Activities Hobbies: Other (hunting, golf) Recreational Activities: I am able to engage in all my recreational activities Social Environment Status Marital Status: Current Living Arrangements Living Environment:: Spouse Children How many children do you have?: 3 Do any of your children live nearby?: Yes Safety Do you feel safe in your surroundings?: Yes Assistance Do you need any assistance at home?: no Review of Systems Review of Systems Hints Review of Present Symptoms: Reports Shortness of Breath with Exertion, Fatigue, Heart Arrhythmia/Irregularities, Appetite - Normal, Appetite - Special Diet and Sleep - Normal; Denies Shortness of Breath at Rest, PVD, Operative Discomfort, Angina, Wound Healing, Dizziness/Lightheadedness or Sexual Changes Pain Is Patient Pain Free?: No Pain Location: back and other (shoulders) Pain Level: 08/26 Risk Factor Assessment Chief Complaint Chief Complaint: S/P mitral valve replacement Vital Signs Pulse Ox: 98 Blood Pressure: 158/75 Pulse Pulse Rate: 65 Hypertension How long have you been treated?: 06/19/2021 Blood Pressure Sitting - Right Arm: 158/75 Stress Stress: Work-related Obesity Height: 5 ft 10 in Weight:: 234 lb Weight in Pounds: 234.0 lbs Body Mass Index (BMI): 33.5 Nutritional Referral for Obesity: No (declines) Physical Inactivity Physical Inactivity: Reg Exercise 30 min/day Risk Stratification Risk Guidelines: Lowest Risk: Risk Factor for Smoking, Moderate Risk: Risk Factor for Diabetes, Risk Factor for Sedentary Lifestyle and Risk Factor for Depression and Highest Risk: Risk Factor for Dyslipidemia, Risk Factor for Obesity and Risk Factor for Hypertension For Smoking Smoking Risk Guidelines For Dyslipidemia Dyslipidemia Risk Guidelines For Diabetes Mellitus Diabetes Risk Guidelines For Obesity/Overweight Obesity/Overweight Risk Guidelines For Hypertension Hypertension Risk Guidelines For Sedentary Lifestyle Sedentary Lifestyle Risk Guidelines For Depression Depression Risk Guidelines Family History Family History Father CAD (coronary artery disease) Diabetes Mother Atrial fibrillation Other Asthma Heart disease Motivation Motivation to Participate On a scale of 1 to 10, how prepared are you to commit to attending program?: 9 What do you see as barriers to successfully being able to complete the program?: no What do you see as the benefits of succesfully completing the program? In other words, what do you hope to get out of participating in the program?: stamina, knowing limits Are there issues you are dealing with that will interfere with completing the program?: no Do you have a spouse or signficant other, family or friends who will help support you to complete the program?: yes
[2023-04-24 10:31] VITALS: BP 158/75; PULSE 65; O2SAT 98
--- NOTE | 2023-04-24 10:31 | CR.ITP_ITS ---
Diagnosis General Information Admitting Diagnosis: S/P mitral valve repalcement Personal Learning Style:: Audio/Visual, Demonstration, Group, Individual Preference and Written Stage of change r/t lifestyle modifications:: Contemplation Gave educational material for:: Treating Heart Disease, How The Heart Works, What it means to have Heart Disease, How Coronary Artery Disease is Diagnosed, Heart Procedures, What Heart Medications Do, Risk Factors & Modifications, Living an Active Life, Nutrition, Emotions & Heart Disease, Stress Management & Relaxation and Sleep Disorders & Heart Disease Education/Goals Cardiac Rehabilitation Goals Personal Goals: Initial Assessment: Improve energy level, Participate in home exercise program, Get back to work, or to resume activities faster, Improve muscle strength and endurance, Improve diet and eating habits (eat healthier) and Other goal: (weight, BP ) Scale for measuring improvement of personal goals Diagnosis & Disease Process Outcomes/Goals: Pt IDs own risk factors & lifestyle modifications by Session 10, Verbalizes symptoms of angina & response by session 3., Pt independently manages and Other Additional Outcomes/Goals: Plan/Interventions: Assist Pt to ID & engage in lifestyle modification to reduce CVD risk, Instruct on individual risk factors, Review symptoms of angina & emergency actions, Review secondary diagnosis & identify educational needs. and Other see comment 30 day Reassessments:: Not Met 30 day Reassessments:: Not Met 30 day Reassessments:: Not Met 30 day Reassessments:: Not Met Final Reassessments:: Not Met Safety Referral to Physical Therapy: No Referral to [facility] Case Management: No Fall Risk Assessed:: Yes Assistive Devices:: None Exercise - Initial Assessment Visit Date of Eval: 04/24/23 (initial eval ) Mets: Pre-: >3 METS for 30 minutes by discharge, >5 METS for 30 minutes by discharge, >7 METS for 30 minutes by discharge and Unable to meet goal due to: (see comment below) Physician Prescribed Exercise Modalities: Treadmill, Airdyne, NuStep, SciFit and Lateral Business Intelligence Analyst Frequency: 3x/week for 12 weeks [36 sessions] Intensity: 60-80% of age predicted maximum heart rate reserve Duration: 30 - 45 minutes Target Heart Rate:: 98-122 Resting Blood Pressure: 158/75 EKG Type: SR with 1st degree AV block, incomplete RBBB Outcomes & Goals Goals:: Verbalizes understanding of THR, RPE & goal METS by session 6, Documents in home exercise log/reports 30 min aerobic 5 day/wk by DC, Demonstrates accurate pulse taking by DC and Other additional outcome/goals: see below Intervention & Plan Exercise Program Goals: Instruct on personal THR & RPE, Instruct on MET level & personal MET goal, Show patient to take own pulse /validate performance until accurate, Instruct on home exercise and Other additional plan/int Physical Activity Home Exercise Physical Activity - Home Exercise: Safe Exercise, Warm-up, Self-monitoring, Cool-Down, Home Exercise > 30 min Daily and Sitting Time <3 hours/daily Outcomes & Goals Outcomes/Goals: Demonstrates correct Warm-up/exercise Cool-Down (S3) if = 2.5 METs, Verbalizes symptoms of exercise intolerance by Session 3 (S3), Demonstrate safe equipment use (S3) & follows exercise prescrition (6) and Other: See below Intervention & Plan Plan/Intervention: Instruct warm-up & cool-down if exercising at > 2 METs, Instruct on symptoms of exercise intolerance & actions to take, Instruct & monitor on saf, Assess intial functional capacity & safety risk and Other See below Nutrition - Initial Assessment Visit Date of Eval: 04/24/23 (initial eval ) Cholesterol/Lipids (Other Core Measures) Determine presence & major risk factors that modify LDL goal: Hypertension or hypertensive medication, Low HDL cholesterol <40 mg/dL*, Family history of premature CHD in Male < 55 years: female <65 yearsFa and Age men > 45 years; women >/= 55 years Outcomes/Goals: Pt IDs own risk factors & lifestyle modifications by Session 10, Verbalizes symptoms of angina & response by session 3., Pt independently manages and Other Additional Outcomes/Goals: Intervention/Plan: Advocate for lipid panel cholesterol medication if applicable , Instruct on personal lipid levels & lipid goals/NCEP guidelines, Instruct on cholesterol and Other additional plan/int Referral to dietitian:: No (declines) Diabetes (Other Core Measures) Diabetes Type: Not Applicable Weight Mgt (Other Care) Height: 5 ft 9.8 in Weight:: 234 lb BMI: 33.7 Diagnosis Overweight/Obesity BMI> 30% ICD-10 E66: Yes Diagnosis High BMI/Morbid Obesity BMI> 35% ICD-10 Z68: No Outcomes/Goals: Pt sets, maintains & shows weight loss goal & trend during rehab and Other additional outcomes/goals Intervention/Plan: Instruct on ideal BMI & set weight loss goal w/patient, Assist pt to ID & incorporate diet changes for weight loss by S9, Refer to Structured Weight Loss program as appropriate, Encourage goal of using 250- 300dcal per session for weight loss and Other additional plan/interventions Healthy Eating Habits Will attend diet classes:: Yes Outcomes/Goals:: Consume diet rich in vegs,fruits,whole grain/high fiber,fish,lean meat, Limit sat/trans fats,cholesterol & added salts & sugars and Other additional outcome/goals: Intervention/Plan:: Assess current eating habits and Other Additional plan/interventions Education Gave educational materials for:: Signs & symptoms of hypoglycemia, Signs & symptoms of hyperglycemia, Relate diabetes to coronary artery disease and Healthy eating Core - Initial Assessment Visit Date of Eval: 04/24/23 (initial eval ) Medication Compliance Preventative Medication(s):: Statin/lipid, Beta madi and Warfarin/Coumadin H/O mental health issues: depression, anxiety, or addiction?: No Doesn?t believe in the benefits of treatment?: No Believes medications are unnecessary or harmful?: No Has a concern about medication side effects?: No Expresses concern over the cost of medications?: No Outcomes/Goals: Verbalizes medications,desired effect & common side effects @ DC, Pt self-reports following medication regimen, Keeps card in wallet w/medications listed by DC and Other additional outcome/goals: Interventions/plans: Instruct on medication effects & side effects, Review medication list w/patient every two weeks, Instruct importance of taking meds as ordered & assist problem solving and Other additional Tobacco Use Tobacco Use: Non-smoker Hypertension Hypertension Diagnosis:: Hypertension ICD-10 I10 Resting Blood Pressure:: 158/75 [place] [employer] Hypertension Guidelines Outcomes/Goals: Able to verbalize/achieve optimal blood pressure <130/80, Incorporates diet changes & exercise for blood pressure control by DC and Other additional outcomes/goals Interventions/plan: Instruct on optimal blood pressure, hypertension & medications, Instruct on effects of sodium, alcohol, stress, exercise &hypertension and Other additional plan/interventions Tobacco Cessation Referral Smoking Cessation Referral:: No Individual Education/Counseling:: No Education Schedule Given:: Yes Psychosocial - Initial Assess VIsit Date of Eval: 04/24/23 (initial eval ) History of previous Mental disease:: No Target Goals Target Goals Outcomes/Goals: See list Psychosocial Outcomes/Goals:: ID's personal stressors & 2 strategies to manage stress by discharge and Other Additional outcome/goals: Intervention/Plan: See List Interventions/Plan:: Assess stressors,coping strategies & signs of derpression on admission, Instruct/assist pt to develop coping & personal stress Mgt strategies, Refer to Behavioral Health if appropriate, Refer to Physician if appropriate, Instruct patient to recognize signs & symptoms of depression, Instruct patient to recog and Other additional plan/intervention Patient Health Questionnaire PHQ-9 Screening Initial Assessment: 1. Little interest or pleasure in doing things: Not at all 2. Feeling down, depressed, or hopeless: Not at all 3. Trouble falling or staying asleep, or sleeping too much: Several days 4. Feeling tired or having little energy: Several days 5. Poor appetite or overeating: Not at all 6. Feeling bad about yourself -- or that you are a failure or have let yourself or your family down: Not at all 7. Trouble concentrating on things, such as reading the newspaper or watching television: Not at all 8. Moving or speaking so slowly that other people could have noticed. Or the opposite - being so fidgety or restless that you have been moving around a lot more than usual: Not at all 9. Thoughts that you would be better off , or of hurting yourself in some way: Not at all How difficult have these problems made it for you to do your work, take care of things at home, or get along with other people?: Not difficult at all Total Score: 2 ALEXUS-Q SV Test Statements CAD is a disease of the arteries in the heart: True Examples of risk factors for heart disease: True Angina is chest pain or discomfort: True The benefits of resistance training include: True Eating more meat and dairy products: False Anti-platelet medications such as aspirin are important: True The only effective way to manage stress: False An exercise warm-up slowly increases heart rate: True Prepared, processed foods usually have high sodium: True Depression is common after a heart attack: True The statin medications lower cholesterol: True To control blood pressure, lower the amount of sodium: True If someone gets chest discomfort during walking: False Transfats are partially hydrogenated vegetable oils: True Sleep apnea that is not treated increases the risk: False To control cholesterol, one should become a vegetarian: False Someone knows if he/she is exercising at the right level: True Diabetes cannot be prevented with exercise & health eating: False Stress is a large risk for heart attack: True A diet that can help lower blood pressure is rich in: True Total Score Total Correct Responses: 19 Self-Efficacy 6-Item Scale Initial Assessment: We would like to know how confident you are in doing certain activities. Please select your confidence level for: Fatigue Select Number: 9 Physical Discomfort or Pain Select Number: 9 Emotional Distress Select Number: 10 Other Symptoms or Health Problems Select Number: 10 Different Tasks and Activities Select Number: 10 Medication Select Number: 10 Total Score:: 9 Nutrition Survey Nutrition Survey Instructions Scoring Instructions Nutrition Survey Initial: Have you lost >10 lbs over the past 2 months without trying?: No Are you following a special diet at home for diabetes, low fat, or low salt?: Yes Are you interested in meeting with a dietitian for help understanding your diet?: No Do you eat less than 3 meals a day?: No Do you eat fatty meats (trotter, sausage, ribs, etc), fried foods, desserts, large amounts of salad dressings, margarine, butter, or cheese most days?: Yes Do you have food allergies? [Enter types in comment field]: No Do you eat in restaurants more than 3 times a week?: No Do you season food with salt, seasoning salt, or garlic salt?: No Do you used canned, boxed, frozen meals, or soups, seasoning packets?: No Total Score:: 2 Exercise - Final/Discharge Physician Prescribed Exercise Modalities: Treadmill, Airdyne, NuStep, SciFit and Lateral Business Intelligence Analyst Frequency: 3x/week for 12 weeks [36 sessions] Intensity: 60-80% of age predicted maximum heart rate reserve Target Heart Rate:: 98-122 Nutrition - 30-Day Assessment Weight Mgt (Other Care) Height: 5 ft 9.8 in Weight:: 234 lb BMI: 33.7 Nutrition - 60-Day Assessment Weight Mgt (Other Care) Height: 5 ft 9.8 in Weight:: 234 lb BMI: 33.7 Core - Final Assessment Hypertension Resting Blood Pressure:: 158/75 [place] [employer] Hypertension Guidelines Core - 60-Day Assessment Hypertension Resting Blood Pressure:: 158/75 [place] [employer] Hypertension Guidelines Psychosocial - 30-Day Assess Target Goals Target Goals Psychosocial - 60-Day Assess Target Goals Target Goals Psychosocial - 90-Day Assess Target Goals Target Goals Psychosocial - Final Assessmen Target Goals Target Goals Nutrition - 90-Day Assessment Weight Mgt (Other Care) Height: 5 ft 9.8 in Weight:: 234 lb BMI: 33.7 Nutrition - Final Assessment Weight Mgt (Other Care) Height: 5 ft 9.8 in Weight:: 234 lb BMI: 33.7
[2023-04-24 10:35] VITALS: BP 158/75
[2023-04-24 10:40] VITALS: BMI 33.5
[2023-04-24 11:22] VITALS: BP 158/75; BMI 33.7
== END | disposition home or self-care (01) ==
LOC: CR 10:16
PROVIDERS: PCP Family Medicine
DX: Z95.2 Presence of prosthetic heart valve (principal); I10 Essential (primary) hypertension; R06.02 Shortness of breath; R53.83 Other fatigue; I49.9 Cardiac arrhythmia, unspecified

== ENCOUNTER 2023-05-17 08:00 | Outpatient (RCR) | payer OTHER, SELFPAY ==
[2023-04-24 11:22] VITALS: BMI 33.7
== END 2023-05-18 23:59 ==
LOC: CR 08:00
PROVIDERS: PCP Family Medicine
DX: Z95.2 Presence of prosthetic heart valve (principal)
CPT/HCPCS: 93798

== ENCOUNTER 2023-06-09 08:00 | Outpatient (RCR) | payer OTHER, SELFPAY ==
[2023-04-24 11:22] VITALS: BMI 33.7
--- NOTE | 2023-05-24 09:06 | PCM.CR.ITP ---
Exercise - Initial Assessment Visit Session #:: 11 Nutrition - Initial Assessment Weight Mgt (Other Care) Height: 5 ft 9.8 in Weight:: 241 lb BMI: 34.7 Psychosocial - Initial Assess Target Goals Target Goals Patient Health Questionnaire PHQ-9 Screening 30-Day Re-eval Assessment: 1. Little interest or pleasure in doing things: Not at all 2. Feeling down, depressed, or hopeless: Not at all 3. Trouble falling or staying asleep, or sleeping too much: Several days 4. Feeling tired or having little energy: Several days 5. Poor appetite or overeating: Not at all 6. Feeling bad about yourself -- or that you are a failure or have let yourself or your family down: Not at all 7. Trouble concentrating on things, such as reading the newspaper or watching television: Not at all 8. Moving or speaking so slowly that other people could have noticed. Or the opposite - being so fidgety or restless that you have been moving around a lot more than usual: Not at all 9. Thoughts that you would be better off , or of hurting yourself in some way: Not at all How difficult have these problems made it for you to do your work, take care of things at home, or get along with other people?: Not difficult at all Total Score: 2 Self-Efficacy 6-Item Scale 30-Day Re-eval Assessment: We would like to know how confident you are in doing certain activities. Please select your confidence level for: Fatigue Select Number: 9 Physical Discomfort or Pain Select Number: 9 Emotional Distress Select Number: 10 Other Symptoms or Health Problems Select Number: 10 Different Tasks and Activities Select Number: 10 Medication Select Number: 10 Total Score:: 9 Nutrition Survey Nutrition Survey Instructions Scoring Instructions Exercise - 30-day Assessment Visit Date of Eval: 05/24/23 Session #:: 11 Physician Prescribed Exercise Modalities: Treadmill, Rower and Airdyne Frequency: 3x/week for 12 weeks [36 sessions] Intensity: 60-80% of age predicted maximum heart rate reserve Duration: 30 - 45 minutes Current METSs:: 6 Target Heart Rate:: 98-122 Current RPE:: 11-13 Maximum Excercise HR:: 131 Resting Blood Pressure: 120/70 Maximum Exercise Blood Pressure: 142/80 EKG Type: Paced./SR w/ 1st degree block, rate dependent BBB Outcomes & Goals Goals:: Verbalizes understanding of THR, RPE & goal METS by session 6, Documents in home exercise log/reports 30 min aerobic 5 day/wk by DC, Demonstrates accurate pulse taking by DC and Other additional outcome/goals: see below Intervention & Plan Exercise Program Goals: Instruct on personal THR & RPE, Instruct on MET level & personal MET goal, Show patient to take own pulse /validate performance until accurate, Instruct on home exercise and Other additional plan/int 30-day Reassessments 30 day Reassessments:: Progressing Reassessment Notes & Comments:: RPE explained Physical Activity Home Exercise Physical Activity - Home Exercise: Safe Exercise, Warm-up, Self-monitoring, Cool-Down, Home Exercise > 30 min Daily and Sitting Time <3 hours/daily Outcomes & Goals Outcomes/Goals: Demonstrates correct Warm-up/exercise Cool-Down (S3) if = 2.5 METs, Verbalizes symptoms of exercise intolerance by Session 3 (S3), Demonstrate safe equipment use (S3) & follows exercise prescrition (6) and Other: See below Intervention & Plan Plan/Intervention: Instruct warm-up & cool-down if exercising at > 2 METs, Instruct on symptoms of exercise intolerance & actions to take, Instruct & monitor on saf, Assess intial functional capacity & safety risk and Other See below 30-day Reassessments 30 day Reassessments:: Progressing Reassessment Notes & Comments:: warm up encouraged Nutrition - 30-Day Assessment Visit Date of Eval: 05/24/23 Session #:: 11 Cholesterol/Lipids (Other Core Measures) Determine presence & major risk factors that modify LDL goal: Hypertension or hypertensive medication, Low HDL cholesterol <40 mg/dL*, Family history of premature CHD in Male < 55 years: female <65 yearsFa and Age men > 45 years; women >/= 55 years Outcomes/Goals: Pt IDs own risk factors & lifestyle modifications by Session 10, Verbalizes symptoms of angina & response by session 3., Pt independently manages and Other Additional Outcomes/Goals: Intervention/Plan: Advocate for lipid panel cholesterol medication if applicable, Instruct on personal lipid levels & lipid goals/NCEP guidelines, Instruct on cholesterol and Other additional plan/int Referral to dietitian:: No (declines) 30-day Reassessments:: Progressing Reassessment Notes & Comments:: risk factors discussed Diabetes (Other Core Measures) Diabetes Type: Not Applicable Weight Mgt (Other Care) Height: 5 ft 9.8 in Weight:: 241 lb BMI: 34.7 Diagnosis Overweight/Obesity BMI> 30% ICD-10 E66: Yes Diagnosis High BMI/Morbid Obesity BMI> 35% ICD-10 Z68: No Outcomes/Goals: Pt sets, maintains & shows weight loss goal & trend during rehab and Other additional outcomes/goals Intervention/Plan: Instruct on ideal BMI & set weight loss goal w/patient, Assist pt to ID & incorporate diet changes for weight loss by S9, Refer to Structured Weight Loss program as appropriate, Encourage goal of using 250-300dcal per session for weight loss and Other additional plan/interventions Reassessment Notes & Comments:: pt to attend nutrition class Healthy Eating Habits Will attend diet classes:: Yes Outcomes/Goals:: Consume diet rich in vegs,fruits,whole grain/high fiber,fish,lean meat, Limit sat/trans fats,cholesterol & added salts & sugars and Other additional outcome/goals: Intervention/Plan:: Assess current eating habits and Other Additional plan/interventions 30-day Reassessments:: Progressing Reassessment Notes & Comments:: pt to attend nutrition class Education Gave educational materials for:: Signs & symptoms of hypoglycemia, Signs & symptoms of hyperglycemia, Relate diabetes to coronary artery disease and Healthy eating Nutrition - 60-Day Assessment Weight Mgt (Other Care) Height: 5 ft 9.8 in Weight:: 241 lb BMI: 34.7 Core - 30-Day Assessment Visit Date of Eval: 05/24/23 Session #:: 11 Medication Compliance Preventative Medication(s):: Statin/lipid, Beta madi and Warfarin/Coumadin H/O mental health issues: depression, anxiety, or addiction?: No Doesn?t believe in the benefits of treatment?: No Believes medications are unnecessary or harmful?: No Has a concern about medication side effects?: No Expresses concern over the cost of medications?: No Outcomes/Goals: Verbalizes medications,desired effect & common side effects @ DC, Pt self-reports following medication regimen, Keeps card in wallet w/medications listed by DC and Other additional outcome/goals: Interventions/plans: Instruct on medication effects & side effects, Review medication list w/patient every two weeks, Instruct importance of taking meds as ordered & assist problem solving and Other additional 30-day Reassessments:: Progressing Reassessment Notes & Comments:: pt taking meds as prescribed Tobacco Use Tobacco Use: Non-smoker Hypertension Hypertension Diagnosis:: Hypertension ICD-10 I10 Resting Blood Pressure:: 120/70 [employer] [place] [employer] Hypertension Guidelines Peak Exercise Blood Pressure:: 142/80 Outcomes/Goals: Able to verbalize/achieve optimal blood pressure <130/80, Incorporates diet changes & exercise for blood pressure control by DC and Other additional outcomes/goals Interventions/plan: Instruct on optimal blood pressure, hypertension & medications, Instruct on effects of sodium, alcohol, stress, exercise &hypertension and Other additional plan/interventions 30 day Reassessments:: Progressing Reassessment Notes & Comments:: pt is taking meds as prescribed Tobacco Cessation Referral Smoking Cessation Referral:: No Individual Education/Counseling:: No Education Schedule Given:: Yes Psychosocial - 30-Day Assess VIsit Date of Eval: 05/24/23 Session #:: 11 History of previous Mental disease:: No Target Goals Target Goals Outcomes/Goals: See list Psychosocial Outcomes/Goals:: ID's personal stressors & 2 strategies to manage stress by discharge and Other Additional outcome/goals: Intervention/Plan: See List Interventions/Plan:: Assess stressors,coping strategies & signs of derpression on admission, Instruct/assist pt to develop coping & personal stress Mgt strategies, Refer to Behavioral Health if appropriate, Refer to Physician if appropriate, Instruct patient to recognize signs & symptoms of depression, Instruct patient to recog and Other additional plan/intervention 30-day Reassessments: 30 day Reassessments:: Met Psychosocial - 60-Day Assess Target Goals Target Goals Outcomes/Goals: See list Psychosocial Outcomes/Goals:: ID's personal stressors & 2 strategies to manage stress by discharge and Other Additional outcome/goals: Psychosocial - 90-Day Assess Target Goals Target Goals Psychosocial - Final Assessmen Target Goals Target Goals Nutrition - 90-Day Assessment Weight Mgt (Other Care) Height: 5 ft 9.8 in Weight:: 241 lb BMI: 34.7 Nutrition - Final Assessment Weight Mgt (Other Care) Height: 5 ft 9.8 in Weight:: 241 lb BMI: 34.7
[2023-05-24 09:20] VITALS: BP 120/70; BMI 34.7
== END 2023-06-18 23:59 ==
LOC: CR 08:00
PROVIDERS: PCP Family Medicine
DX: Z95.2 Presence of prosthetic heart valve (principal)
CPT/HCPCS: 93798